=== PATIENT | male | born 1995 | race Caucasian/White ===

== ENCOUNTER 2019-04-12 05:33 | Emergency (ER) | payer BC ==
[2019-04-12 05:38] VITALS: BP 139/82; PULSE 74; RESP 18; TEMP 97.4
[2019-04-12] MEDS ORDERED: ACET/COD 300 MG/30 MG STARTER PACK 6 TAB BTL PO STA (06:05)
[2019-04-12] MEDS ORDERED: ONDANSETRON 4 MG ODT STARTER PACK 2 TAB BTL PO STA (06:05)
[2019-04-12] MEDS ORDERED: MORPHINE SULFATE 4 MG/ML SYRINGE IM STA (06:05)
[2019-04-12] MEDS ORDERED: KETOROLAC 30 MG/ML 1 ML VIAL IM STA (06:05)
[2019-04-12 06:21] LABS: Appearance,Urine Clear (Clear); Bacteria,Urine Rare /hpf; Bilirubin,Urine Negative (Negative); Blood,Urine Large (Negative); Color,Urine Light Red; Glucose,Urine (UA) Negative (Negative); Ketones,Urine Negative (Negative); Leukocyte Esterase,Urine Small (Negative); Mucus,Urine Rare /hpf; Nitrite,Urine Negative (Negative); Protein,Urine Trace (Negative); RBC,Urine >182 /hpf (0-5); Specific Gravity,Urine 1.018 (1.001-1.035); Urobilinogen,Urine <2.0 mg/dL (<2.0); WBC,Urine 9 /hpf (0-5)
--- NOTE | 2019-04-12 06:23 | ED ---
Abdominal Pain HPI - General Chief Complaint: Abdominal Pain Stated Complaint: left flank pain; blood in urine Time Seen by Provider: 04/12/19 05:46 Source: patient Mode of arrival: ambulatory Limitations: no limitations - History of Present Illness Initial Comments: Chuck is a 23 yo male with PMH of recurrent kidney stones or presents the ER today for evaluation of severe left-sided flank pain that woke him from sleep. Patient reports he woke up with this flank pain believe that he had a kidney stone, went to the bathroom had some urinary urgency and hesitancy and noted gross hematuria. That time he decided to come to the ER for further evaluation. Reports last kidney stone was approximately 2 years ago. He's never required lithotripsy. He denies any associated illness. This was sudden in onset less than 2 hours prior to arrival. - Related Data Previous Rx's Medication Instructions Recorded Tamsulosin [Flomax] 0.4 mg PO DAILY #7 cap 04/12/19 Allergies Allergy/AdvReac Type Severity Reaction Status Date / Time No Known Allergies Allergy Verified 04/12/19 05:38 Review of Systems ROS Statement: Those systems with pertinent positive or pertinent negative responses have been documented in the HPI. ROS Other: All systems not noted in ROS Statement are negative. Past Medical History Additional Past Medical History / Comment(s): kidney stones. History of Any Multi-Drug Resistant Organisms: None Reported Past Surgical History: Back Surgery Past Psychological History: No Psychological Hx Reported Smoking Status: Current every day smoker Past Alcohol Use History: None Reported Past Drug Use History: None Reported General Exam - General Exam Comments Initial Comments: Physical Exam GENERAL: Patient is well-developed and well-nourished. Patient is nontoxic and well-hydrated and is in no distress. HENT: Normocephalic, Atraumatic. EYES: PERRL, EOMI PULMONARY: Unlabored respirations. CARDIOVASCULAR: RRR Warm and well perfused extremities ABDOMEN: Non-distended Tenderness to percussion left flank SKIN: No rashes or bruising : Deferred NEUROLOGIC: Alert and oriented Normal speech Normal gait MUSCULOSKELETAL: Moving all extremities with no apparent injury PSYCHIATRIC: No SI/HI Limitations: no limitations Course Vital Signs 04/12/19 05:34 Temperature 97.4 F L Pulse Rate 74 Respiratory 18 Rate Blood Pressure 139/82 O2 Sat by Pulse 98 Oximetry Medical Decision Making - Medical Decision Making Patient was seen and evaluated history was obtained from patient history and physical exam concerning for left-sided nephrolithiasis with hematuria. This is an otherwise healthy man who's had no problems passing kidney stones in the past. Urinalysis does show hematuria no signs of infection. Patient was treated with IM morphine and Toradol for pain management, Zofran as needed for nausea will be discharged home with Tylenol 3, Zofran and Flomax. - Lab Data Lab Results 04/12/19 Range/Units 05:45 Urine Color Light Red Urine Appearance Clear (Clear) Urine pH 6.0 (5.0-8.0) Ur Specific [place] 1.018 (1.001-1.035) Urine Protein Trace H (Negative) Urine Glucose (UA) Negative (Negative) Urine Ketones Negative (Negative) Urine Blood Large H (Negative) Urine Nitrite Negative (Negative) Urine Bilirubin Negative (Negative) Urine Urobilinogen <2.0 (<2.0) mg/dL Ur Leukocyte Esterase Small H (Negative) Urine RBC >182 H (0-5) /hpf Urine WBC 9 H (0-5) /hpf Urine Bacteria Rare H (None) /hpf Urine Mucus Rare H (None) /hpf Disposition Clinical Impression: Flank pain Disposition: HOME SELF-CARE Condition: Stable Instructions (If sedation given, give patient instructions): Kidney Stones (ED) Prescriptions: Tamsulosin [Flomax] 0.4 mg PO DAILY #7 cap Is patient prescribed a controlled substance at d/c from ED?: No Referrals: None,Stated [Primary Care Provider] - 1-2 days Beck Valenzuela MD [STAFF PHYSICIAN] - 1-2 days
== END 2019-04-12 06:43 | disposition home or self-care (01) ==
LOC: EC 05:33
DX: R10.9 Unspecified abdominal pain (principal); R31.9 Hematuria, unspecified; R39.15 Urgency of urination; R39.11 Hesitancy of micturition; F17.200 Nicotine dependence, unspecified, uncomplicated; Z87.442 Personal history of urinary calculi
CPT/HCPCS: 81001; 99284; 96372 ×2; J2270; J1885; S0119

== ENCOUNTER 2020-08-16 05:24 | Emergency (ER) | payer BC, OTHER ==
[2020-08-16 05:29] VITALS: BP 126/80; PULSE 78; RESP 18; TEMP 97.6
[2020-08-16] MEDS ORDERED: LIDOCAINE 1% INJ 10MG/ML (20 ML MDV) SQ ONE (05:45)
[2020-08-16] MEDS ORDERED: SULFAMETHOX-TMP 800-160MG 1 EACH TAB PO STA (05:45)
--- NOTE | 2020-08-16 05:45 | ED ---
Skin/Abscess/FB HPI - General Chief complaint: Skin/Abscess/Foreign Body Stated complaint: Abscess Time Seen by Provider: 08/16/20 05:40 Source: patient Mode of arrival: ambulatory Limitations: no limitations - History of Present Illness MD complaint: abscess/boil Onset/Timin -: days(s) Tetanus Up to Date: no Location: buttocks Severity: moderate Quality: aching Consistency: constant Improves with: none Worsens with: palpation Context: none - Related Data Previous Rx's Medication Instructions Recorded Tamsulosin [Flomax] 0.4 mg PO DAILY #7 cap 04/12/19 Sulfamethox-Tmp 800-160Mg [Bactrim 1 each PO Q12HR #14 tab 08/16/20 Ds] Allergies Allergy/AdvReac Type Severity Reaction Status Date / Time No Known Allergies Allergy Verified 08/16/20 05:29 Review of Systems ROS Statement: Those systems with pertinent positive or pertinent negative responses have been documented in the HPI. ROS Other: All systems not noted in ROS Statement are negative. Constitutional: Denies: fever, chills Respiratory: Denies: cough, dyspnea Cardiovascular: Denies: chest pain, palpitations Gastrointestinal: Denies: abdominal pain, nausea, vomiting, diarrhea, constipation Musculoskeletal: Denies: back pain Skin: Reports: as per HPI, other (Abscess). Denies: rash Past Medical History Past Medical History: Asthma Additional Past Medical History / Comment(s): kidney stones. History of Any Multi-Drug Resistant Organisms: None Reported Past Surgical History: Back Surgery Past Psychological History: No Psychological Hx Reported Smoking Status: Current every day smoker Past Alcohol Use History: None Reported Past Drug Use History: None Reported General Exam Limitations: no limitations General appearance: alert, in no apparent distress Head exam: Present: atraumatic, normocephalic Eye exam: Present: normal appearance. Absent: scleral icterus, conjunctival injection GI/Abdominal exam: Present: soft. Absent: distended, tenderness, guarding Skin exam: Present: warm, dry, intact, normal color, other (There is an approximately 4 cm diameter abscess to the left side of the gluteal cleft). Absent: rash Course Vital Signs 08/16/20 05:25 Temperature 97.6 F Pulse Rate 78 Respiratory 18 Rate Blood Pressure 126/80 O2 Sat by Pulse 100 Oximetry Procedures - Incision & Drainage Consent Obtained: verbal consent Site: buttock Anesthetic Used: lidocaine 1% I&D Cleaning Method: Chloroprep Sterile Field Used?: Yes Scalpel Used: #11 Needle Aspiration Performed?: Yes Irrigation Performed?: Yes I&D Drainage Obtained: Pus, Blood Packing: Iodoform Patient Tolerated Procedure: well, no complications Disposition Clinical Impression: Abscess Disposition: HOME SELF-CARE Condition: Good Instructions (If sedation given, give patient instructions): Abscess Incision and Drainage (ED) Prescriptions: Sulfamethox-Tmp 800-160Mg [Bactrim Ds] 1 each PO Q12HR #14 tab Is patient prescribed a controlled substance at d/c from ED?: No Referrals: None,Stated [Primary Care Provider] - 1-2 days
== END 2020-08-16 06:43 | disposition home or self-care (01) ==
LOC: EC 05:24
DX: L02.31 Cutaneous abscess of buttock (principal); J45.909 Unspecified asthma, uncomplicated; F17.200 Nicotine dependence, unspecified, uncomplicated; Z87.442 Personal history of urinary calculi
CPT/HCPCS: 99282; 10160; J2001

== ENCOUNTER 2020-09-21 05:32 | Emergency (ER) | payer BC ==
[2020-09-21 05:37] VITALS: RESP 16; TEMP 97.7
[2020-09-21] MEDS ORDERED: IPRATROPIUM-ALBUTEROL 3 ML NEB INHALATION STA (05:53)
--- NOTE | 2020-09-21 05:53 | ED ---
SOB HPI - General Chief Complaint: Shortness of Breath Stated Complaint: SOFIE Time Seen by Provider: 09/21/20 05:34 Source: patient, RN notes reviewed, old records reviewed Mode of arrival: ambulatory Limitations: no limitations - History of Present Illness Initial Comments: This is a 25-year-old male DF for evaluation with history of asthma. Patient pr esents having shortness of breath with increased cough and congestion. Patient did have a cigarettes night states after smoking he is increasingly short of breath. No current chest pain. No fevers. MD Complaint: shortness of breath, cough, "asthma attack", anxiety -: hour(s) Severity: moderate Severity scale (1-10): 6 Quality: dull Consistency: constant Improves With: nothing Known History Of: asthma Context: other (Patient did smoke tonight) Associated Symptoms: cough - Related Data Previous Rx's Medication Instructions Recorded Tamsulosin [Flomax] 0.4 mg PO DAILY #7 cap 04/12/19 Sulfamethox-Tmp 800-160Mg [Bactrim 1 each PO Q12HR #14 tab 08/16/20 Ds] Azithromycin [Zithromax Z-pack (6 0 mg PO DIRECTED #1 pack 09/21/20 tabs)] predniSONE 50 mg PO DAILY #5 tab 09/21/20 Allergies Allergy/AdvReac Type Severity Reaction Status Date / Time No Known Allergies Allergy Verified 09/21/20 05:34 Review of Systems ROS Statement: Those systems with pertinent positive or pertinent negative responses have been documented in the HPI. ROS Other: All systems not noted in ROS Statement are negative. Past Medical History Past Medical History: Asthma Additional Past Medical History / Comment(s): kidney stones. History of Any Multi-Drug Resistant Organisms: None Reported Past Surgical History: Back Surgery Past Psychological History: No Psychological Hx Reported Smoking Status: Current every day smoker Past Alcohol Use History: Occasional Past Drug Use History: None Reported General Exam Limitations: no limitations General appearance: alert, in no apparent distress, anxious Head exam: Present: atraumatic, normocephalic, normal inspection Eye exam: Present: normal appearance, PERRL, EOMI. Absent: scleral icterus, conjunctival injection, periorbital swelling ENT exam: Present: normal exam, mucous membranes moist Neck exam: Present: normal inspection. Absent: tenderness, meningismus, lymphadenopathy Respiratory exam: Present: wheezes, decreased breath sounds, prolonged expiratory. Absent: respiratory distress, rales, rhonchi, stridor Cardiovascular Exam: Present: regular rate, normal rhythm, normal heart sounds. Absent: systolic murmur, diastolic murmur, rubs, gallop, clicks GI/Abdominal exam: Present: soft, normal bowel sounds. Absent: distended, tenderness, guarding, rebound, rigid Extremities exam: Present: normal inspection, full ROM, normal capillary refill. Absent: tenderness, pedal edema, joint swelling, calf tenderness Back exam: Present: normal inspection Neurological exam: Present: alert, oriented X3, CN II-XII intact Psychiatric exam: Present: normal affect, normal mood Skin exam: Present: warm, dry, intact, normal color. Absent: rash Course Vital Signs 09/21/20 09/21/20 09/21/20 05:34 06:26 06:53 Temperature 97.7 F Pulse Rate 73 72 78 Respiratory 16 16 Rate Blood Pressure 131/80 117/69 O2 Sat by Pulse 100 100 Oximetry - Reevaluation(s) Reevaluation #1: Medical record is reviewed Patient symptoms significantly improved here in the ER Patient informed results questions answered Medical Decision Making - Medical Decision Making 25 male to the ER for evaluation patient has history of asthma presenting with severe asthma exacerbation other symptoms are resolved on the ER patient feels good for discharge home Disposition Clinical Impression: Asthma with acute exacerbation Disposition: HOME SELF-CARE Condition: Good Instructions (If sedation given, give patient instructions): Asthma (ED) Prescriptions: predniSONE 50 mg PO DAILY #5 tab Azithromycin [Zithromax Z-pack (6 tabs)] 0 mg PO DIRECTED #1 pack Is patient prescribed a controlled substance at d/c from ED?: No Referrals: Nonstaff,Physician [Primary Care Provider] - 1-2 days
[2020-09-21] MEDS ORDERED: predniSONE 20 MG TAB PO STA (05:54)
[2020-09-21 06:53] VITALS: BP 117/69; PULSE 78
== END 2020-09-21 06:53 | disposition home or self-care (01) ==
LOC: EC 05:32
DX: J45.901 Unspecified asthma with (acute) exacerbation (principal); F17.200 Nicotine dependence, unspecified, uncomplicated; Z87.442 Personal history of urinary calculi
CPT/HCPCS: 94640; 99284; J7512

== ENCOUNTER 2021-01-22 12:13 | Emergency (ER) | payer BC, OTHER ==
[2021-01-22 13:56] VITALS: BP 141/89; PULSE 80; RESP 18; TEMP 98.7
--- NOTE | 2021-01-22 13:58 | ED ---
Skin/Abscess/FB HPI - General Chief complaint: Skin/Abscess/Foreign Body Stated complaint: skin rash Time Seen by Provider: 01/22/21 13:57 Source: patient, RN notes reviewed Mode of arrival: ambulatory Limitations: no limitations - History of Present Illness Initial comments: the 25-year-old male presents emergency Department chief complaint of a rash. Patient states rash started last night. Patient states that she had nature. Patient states it's spread to both arms. Patient denies being on the words or touching anything new. Patient states that he did break off bleed that was in the fence line. Patient offers no other complaints. No difficulty breathing. - Related Data Previous Rx's Medication Instructions Recorded Tamsulosin [Flomax] 0.4 mg PO DAILY #7 cap 04/12/19 Sulfamethox-Tmp 800-160Mg [Bactrim 1 each PO Q12HR #14 tab 08/16/20 Ds] Azithromycin [Zithromax Z-pack (6 0 mg PO DIRECTED #1 pack 09/21/20 tabs)] predniSONE 50 mg PO DAILY #5 tab 09/21/20 Triamcinolone 0.1% Cream [Kenalog 1 applicatio TOPICAL BID #30 gram 01/22/21 0.1% Cream] diphenhydrAMINE & Zinc Cream 1 applic TOPICAL TID #28 gm 01/22/21 [Benadryl Cream] predniSONE 50 mg PO DAILY #5 tab 01/22/21 Allergies Allergy/AdvReac Type Severity Reaction Status Date / Time No Known Allergies Allergy Verified 01/22/21 13:56 Review of Systems ROS Statement: Those systems with pertinent positive or pertinent negative responses have been documented in the HPI. ROS Other: All systems not noted in ROS Statement are negative. Past Medical History Past Medical History: Asthma Additional Past Medical History / Comment(s): kidney stones. History of Any Multi-Drug Resistant Organisms: None Reported Past Surgical History: Back Surgery Past Psychological History: No Psychological Hx Reported Smoking Status: Current every day smoker Past Alcohol Use History: Occasional Past Drug Use History: None Reported General Exam Limitations: no limitations General appearance: alert, in no apparent distress Head exam: Present: atraumatic, normocephalic, normal inspection Eye exam: Present: normal appearance, PERRL, EOMI. Absent: scleral icterus, conjunctival injection, periorbital swelling ENT exam: Present: normal exam, normal oropharynx, mucous membranes moist Neck exam: Present: normal inspection, full ROM. Absent: tenderness, meningismus, lymphadenopathy Respiratory exam: Present: normal lung sounds bilaterally. Absent: respiratory distress, wheezes, rales, rhonchi, stridor Cardiovascular Exam: Present: regular rate, normal rhythm, normal heart sounds. Absent: systolic murmur, diastolic murmur, rubs, gallop, clicks Skin exam: Present: warm, dry, intact, normal color, rash (has erythematous papular rash and macular in nature to the extremities upper) Course Vital Signs 01/22/21 13:54 Temperature 98.7 F Pulse Rate 80 Respiratory 18 Rate Blood Pressure 141/89 O2 Sat by Pulse 100 Oximetry Medical Decision Making - Medical Decision Making patient has contact dermatitis started and topical and oral steroids. Disposition Clinical Impression: Contact dermatitis Disposition: HOME SELF-CARE Condition: Stable Instructions (If sedation given, give patient instructions): Contact Dermatitis (ED) Additional Instructions: Please return to the Emergency Department if symptoms worsen or any other concerns. Prescriptions: diphenhydrAMINE & Zinc Cream [Benadryl Cream] 1 applic TOPICAL TID #28 gm Triamcinolone 0.1% Cream [Kenalog 0.1% Cream] 1 applicatio TOPICAL BID #30 gram predniSONE 50 mg PO DAILY #5 tab Is patient prescribed a controlled substance at d/c from ED?: No Referrals: Nonstaff,Physician [Primary Care Provider] - 1-2 days Time of Disposition: 13:58
== END 2021-01-22 14:10 | disposition home or self-care (01) ==
LOC: EC 12:13
DX: L25.9 Unspecified contact dermatitis, unspecified cause (principal); J45.909 Unspecified asthma, uncomplicated; F17.200 Nicotine dependence, unspecified, uncomplicated
CPT/HCPCS: 99282

== ENCOUNTER → 2021-07-05 | Outpatient (CLI) | payer OTHER ==
--- NOTE | 2021-07-05 12:11 | XR ---
EXAMINATION TYPE: XR chest 2V DATE OF EXAM: 07/05/2021 COMPARISON: None available HISTORY: 25-year-old male, history of asthma, assess lungs TECHNIQUE: Frontal and lateral views of the chest are obtained. FINDINGS: Unremarkable lungs. No pleural effusion or pneumothorax. No cardiomegaly. Unremarkable bony thoracic cage. IMPRESSION: No significant abnormality.
== END | disposition home or self-care (01) ==
LOC: RADXRMAIN 11:39
PROVIDERS: ATTEND Emergency Medicine
DX: R05.9 Cough, unspecified (principal); Z87.09 Personal history of other diseases of the respiratory system
CPT/HCPCS: 71046

== ENCOUNTER 2021-08-16 21:57 | Emergency (ER) | payer OTHER ==
[2021-08-16 22:38] VITALS: BP 131/87; TEMP 98
[2021-08-17] MEDS ORDERED: predniSONE 50 MG TAB PO STA (00:01)
[2021-08-17] MEDS ORDERED: IPRATROPIUM-ALBUTEROL 3 ML NEB INHALATION STA (00:02)
--- NOTE | 2021-08-17 00:06 | ED ---
SOB HPI - General Chief Complaint: Shortness of Breath Stated Complaint: SOB Time Seen by Provider: 08/16/21 23:21 Source: patient, RN notes reviewed Mode of arrival: wheelchair - History of Present Illness Initial Comments: This is a pleasant 25-year-old male who presents emergency department complaining of a asthma attack. Patient states it seemed to be worse when he is in the waiting room but has settled down now. Patient also states he is out of his inhaler. Patient states that his triggers are some things at work that he is ALLERGIC to. Patient denies any fever or chills. Patient also has other environmental triggers. Patient denying any other symptomology [place]. No chest pain or shortness of breath. No body aches. No runny nose. No earache. No sore throat. No headache, no fever or chills, no changes in vision or hearing, no sore throat or difficulty with speech, no neck pain, no chest pain, no abdominal pain, no nausea or vomiting, no changes in urination or bowel movements, no numbness or tingling, no extremity pain, no skin rashes or lesions. MD Complaint: shortness of breath - Related Data Previous Rx's Medication Instructions Recorded Tamsulosin [Flomax] 0.4 mg PO DAILY #7 cap 04/12/19 Sulfamethox-Tmp 800-160Mg [Bactrim 1 each PO Q12HR #14 tab 08/16/20 Ds] Azithromycin [Zithromax Z-pack (6 0 mg PO DIRECTED #1 pack 09/21/20 tabs)] predniSONE 50 mg PO DAILY #5 tab 09/21/20 Triamcinolone 0.1% Cream [Kenalog 1 applicatio TOPICAL BID #30 gram 01/22/21 0.1% Cream] diphenhydrAMINE & Zinc Cream 1 applic TOPICAL TID #28 gm 01/22/21 [Benadryl Cream] predniSONE 50 mg PO DAILY #5 tab 01/22/21 Albuterol Sulfate [Albuterol 2 puff PO Q6H #8.5 gm 08/17/21 Sulfate Hfa] predniSONE 50 mg PO DAILY #3 tab 08/17/21 Allergies Allergy/AdvReac Type Severity Reaction Status Date / Time No Known Allergies Allergy Verified 08/16/21 22:38 Review of Systems ROS Statement: Those systems with pertinent positive or pertinent negative responses have been documented in the HPI. ROS Other: All systems not noted in ROS Statement are negative. Past Medical History Past Medical History: Asthma Additional Past Medical History / Comment(s): kidney stones. History of Any Multi-Drug Resistant Organisms: None Reported Past Surgical History: Back Surgery Past Psychological History: No Psychological Hx Reported Smoking Status: Current every day smoker Past Alcohol Use History: Occasional Past Drug Use History: None Reported General Exam General appearance: alert, in no apparent distress Head exam: Present: atraumatic, normocephalic, normal inspection Eye exam: Present: normal appearance, PERRL, EOMI. Absent: scleral icterus, conjunctival injection, periorbital swelling ENT exam: Present: normal exam, normal oropharynx, mucous membranes moist, TM's normal bilaterally, normal external ear exam. Absent: mucous membranes dry Neck exam: Present: normal inspection, full ROM. Absent: tenderness, meningismus, lymphadenopathy Respiratory exam: Present: wheezes (Scant expiratory wheezes heard.). Absent: respiratory distress, rales, rhonchi, stridor, chest wall tenderness, accessory muscle use, decreased breath sounds, prolonged expiratory Cardiovascular Exam: Present: regular rate, normal rhythm, normal heart sounds. Absent: systolic murmur, diastolic murmur, rubs, gallop, clicks GI/Abdominal exam: Present: soft, normal bowel sounds. Absent: distended, tenderness, guarding, rebound, rigid Extremities exam: Present: normal inspection, full ROM, normal capillary refill. Absent: tenderness, pedal edema, joint swelling, calf tenderness Back exam: Present: normal inspection Neurological exam: Present: alert, oriented X3, CN II-XII intact Psychiatric exam: Present: normal affect, normal mood Skin exam: Present: warm, dry, intact, normal color. Absent: rash Course Vital Signs 08/16/21 22:34 Temperature 98.0 F Pulse Rate 79 Respiratory 18 Rate Blood Pressure 131/87 O2 Sat by Pulse 97 Oximetry Medical Decision Making - Medical Decision Making Patient presents with symptomology consistent with a mild asthma attack. We will treat with bronchodilators, anticholinergics here, and prednisone for 3 days. Patient concurs with this treatment plan. Albuterol prescription written. Patient also follow-up with his regular physician. All questions answered. Patient presentation not consistent with an infectious etiology. I see no indication for imaging at this time. Patient in no distress at discharge Patient was told to return to the ER for any signs or symptoms worsen. Told to return immediately if any other problems arise. All questions answered. Treatment plan discussed. Patient in agreement Every effort has been made to ensure accuracy of this dictation. However, due to the limitations of electronic medical records and dictation devices, errors in charting still occur. [employer] Supervisor Dr. Kendall Disposition Clinical Impression: Asthma exacerbation Narrative: Mild asthma exacerbation Disposition: HOME SELF-CARE Condition: Good Instructions (If sedation given, give patient instructions): Asthma (ED) Additional Instructions: Follow-up with your regular physician as directed. Return to the ER immediately if any symptoms worsen, new symptoms arise, or any other problems develop. Is patient prescribed a controlled substance at d/c from ED?: No Referrals: Abilio Odell [STAFF PHYSICIAN] - 1-2 days Time of Disposition: 00:06
[2021-08-17 01:24] VITALS: PULSE 87; RESP 2
== END 2021-08-17 01:23 | disposition home or self-care (01) ==
LOC: EC 21:57
DX: J45.901 Unspecified asthma with (acute) exacerbation (principal); F17.200 Nicotine dependence, unspecified, uncomplicated
CPT/HCPCS: 94640; 99284; J7512

== ENCOUNTER 2022-01-29 05:46 | Emergency (ER) | payer BC ==
[2022-01-29 05:50] VITALS: RESP 16; TEMP 98.2
[2022-01-29] MEDS ORDERED: KETOROLAC 15 MG/ML 1 ML VIAL IM STA (06:18)
[2022-01-29] MEDS ORDERED: HYDROcodone/APAP 5-325MG 1 EACH TAB PO STA (06:18)
--- NOTE | 2022-01-29 06:26 | ED ---
Upper Extremity HPI - General Chief Complaint: Extremity Injury, Upper Stated Complaint: Right hand injury Time Seen by Provider: 01/29/22 05:58 Source: patient, RN notes reviewed Mode of arrival: ambulatory Limitations: no limitations - History of Present Illness Initial Comments: This is a 26-year-old male who presents to the emergency department for a right hand injury. States that he had a night terror, and subsequently punched his nightstand. He has since had a lot of pain and swelling to the right hand. He is having difficulty opening and closing his hand due to the pain. Denies any fevers, chills, sore throat, cough, dyspnea, chest pain, palpitations, abdominal pain, nausea, vomiting, diarrhea, back pain, or headaches. MD Complaint: Injury to:: right, hand Context: direct blow - Related Data Previous Rx's Medication Instructions Recorded Tamsulosin [Flomax] 0.4 mg PO DAILY #7 cap 04/12/19 Sulfamethox-Tmp 800-160Mg [Bactrim 1 each PO Q12HR #14 tab 08/16/20 Ds] Azithromycin [Zithromax Z-pack (6 0 mg PO DIRECTED #1 pack 09/21/20 tabs)] predniSONE 50 mg PO DAILY #5 tab 09/21/20 Triamcinolone 0.1% Cream [Kenalog 1 applicatio TOPICAL BID #30 gram 01/22/21 0.1% Cream] diphenhydrAMINE & Zinc Cream 1 applic TOPICAL TID #28 gm 01/22/21 [Benadryl Cream] predniSONE 50 mg PO DAILY #5 tab 01/22/21 Albuterol Sulfate [Albuterol 2 puff PO Q6H #8.5 gm 08/17/21 Sulfate Hfa] predniSONE 50 mg PO DAILY #3 tab 08/17/21 Allergies Allergy/AdvReac Type Severity Reaction Status Date / Time No Known Allergies Allergy Verified 01/29/22 05:48 Review of Systems ROS Statement: Those systems with pertinent positive or pertinent negative responses have been documented in the HPI. ROS Other: All systems not noted in ROS Statement are negative. Past Medical History Past Medical History: Asthma Additional Past Medical History / Comment(s): kidney stones. History of Any Multi-Drug Resistant Organisms: None Reported Past Surgical History: Back Surgery Past Psychological History: No Psychological Hx Reported Smoking Status: Current every day smoker Past Alcohol Use History: Occasional Past Drug Use History: None Reported General Exam Limitations: no limitations General appearance: alert, in no apparent distress Head exam: Present: atraumatic, normocephalic, normal inspection Respiratory exam: Present: normal lung sounds bilaterally. Absent: respiratory distress, wheezes, rales, rhonchi, stridor Cardiovascular Exam: Present: regular rate, normal rhythm, normal heart sounds. Absent: systolic murmur, diastolic murmur, rubs, gallop, clicks Extremities exam: Present: other (Erythema, swelling, and tenderness over the dorsal aspect of the right hand.) Neurological exam: Present: alert, oriented X3, CN II-XII intact Psychiatric exam: Present: normal affect, normal mood Skin exam: Present: warm, dry, intact, normal color. Absent: rash Course Vital Signs 01/29/22 01/29/22 05:48 06:39 Temperature 98.2 F Pulse Rate 80 68 Respiratory 16 16 Rate Blood Pressure 155/84 145/89 O2 Sat by Pulse 99 98 Oximetry Medical Decision Making - Medical Decision Making This is a 26-year-old male who presents to the emergency department for a right hand injury. X-ray obtained revealing no acute osseous abnormality. Patient was given starter packs for ibuprofen and Tylenol #3. His hand was also wrapped with an Bharat bandage. Instructed him to alternate with ibuprofen and Tylenol for pain relief and to apply ice for 10-15 minutes every 2-3 hours. He can use the Bharat bandages as needed for additional support. Return precautions reviewed in depth, the patient is instructed to return to the emergency department with any new, worsening, or concerning symptoms. Patient verbalized understanding. This case was discussed in detail with the attending ED physician. Presentation, findings, and treatment plan discussed in detail as well. - Radiology Data Radiology results: report reviewed, image reviewed Disposition Clinical Impression: Contusion of hand, right Disposition: HOME SELF-CARE Instructions (If sedation given, give patient instructions): Crush Injury (ED) Additional Instructions: Return to the emergency department with any new, worsening, or concerning symptoms. Alternate with ibuprofen and Tylenol for pain relief. Apply ice for 10-15 minutes every 2-3 hours to help with swelling and inflammation. You can use an Bharat bandage as needed for additional support. Follow up with your primary care provider in 1-2 days. Is patient prescribed a controlled substance at d/c from ED?: No Referrals: None,Stated [Primary Care Provider] - 1-2 days
[2022-01-29 06:41] VITALS: BP 145/89; PULSE 68
[2022-01-29] MEDS ORDERED: IBUPROFEN 600 MG STARTER PACK 4 TAB BTL PO STA (06:53)
[2022-01-29] MEDS ORDERED: ACET/COD 300 MG/30 MG STARTER PACK 6 TAB BTL PO STA (06:53)
--- NOTE | 2022-01-29 06:54 | XR ---
EXAMINATION TYPE: XR hand complete RT DATE OF EXAM: 01/29/2022 6:10 AM INDICATION: Patient age:Male; 26 years old; Reason for study: RIGHT HAND SWELLING AND PAIN; [facility]. COMPARISON: None TECHNIQUE: Frontal, lateral and oblique views of the right hand were obtained. FINDINGS: Normal alignment of the visualized joints. No acute osseous pathology is identified. No e vidence of soft tissue swelling. IMPRESSION: No acute osseous pathology.
== END 2022-01-29 07:13 | disposition home or self-care (01) ==
LOC: EC 05:46
DX: S60.221A Contusion of right hand, initial encounter (principal); J45.909 Unspecified asthma, uncomplicated; F17.200 Nicotine dependence, unspecified, uncomplicated; Z79.51 Long term (current) use of inhaled steroids; W22.8XXA Striking against or struck by other objects, initial encounter
CPT/HCPCS: 99283 ×2; 96372 ×2; 73130; J1885

== ENCOUNTER 2023-04-10 14:19 | Emergency (ER) | payer BC ==
--- NOTE | 2023-04-10 15:24 | ED ---
General Adult HPI - General Source: patient Mode of arrival: ambulatory Limitations: no limitations <Chris Larkin - Last Filed: 04/10/23 15:25> - General Source: patient, family, RN notes reviewed Mode of arrival: ambulatory Limitations: no limitations <Lyndsay Sharma - Last Filed: 04/10/23 16:46> - General Chief complaint: Upper Respiratory Infection Stated complaint: Flu Symptoms Time Seen by Provider: 04/10/23 15:24 - History of Present Illness Initial comments: 27-year-old male presenting to the ED with a chief complaint of fever. Patient states woke up this morning with myalgias, headache, and fever. Also notes some sore throat (Chris Larkin) Patient is a 27-year-old male presented ER with chief complaint of fevers. Patient states he woke up this morning with body aches, fever, headache. Patient also reports congestion and mild sore throat. Patient denies any difficulty breathing or wheezing. Patient is otherwise healthy. Patient has been taking [id number] DayQuil for symptoms. Last dose was at 5:30 this morning. Patient denies any chest pain, shortness of breath, abdominal pain, consultation/diarrhea, urinary problems, peripheral edema. (Lyndsay Sharma) - Related Data Previous Rx's Medication Instructions Recorded Tamsulosin [Flomax] 0.4 mg PO DAILY #7 cap 04/12/19 Sulfamethox-Tmp 800-160Mg [Bactrim 1 each PO Q12HR #14 tab 08/16/20 Ds] Azithromycin [Zithromax Z-pack (6 0 mg PO DIRECTED #1 pack 09/21/20 tabs)] predniSONE 50 mg PO DAILY #5 tab 09/21/20 Triamcinolone 0.1% Cream [Kenalog 1 applicatio TOPICAL BID #30 gram 01/22/21 0.1% Cream] diphenhydrAMINE & Zinc Cream 1 applic TOPICAL TID #28 gm 01/22/21 [Benadryl Cream] predniSONE 50 mg PO DAILY #5 tab 01/22/21 Albuterol Sulfate [Albuterol 2 puff PO Q6H #8.5 gm 08/17/21 Sulfate Hfa] predniSONE 50 mg PO DAILY #3 tab 08/17/21 Allergies Allergy/AdvReac Type Severity Reaction Status Date / Time No Known Allergies Allergy Verified 04/10/23 15:11 Review of Systems ROS Other: All systems not noted in ROS Statement are negative. <Chris Larkin - Last Filed: 04/10/23 15:25> ROS Other: All systems not noted in ROS Statement are negative. <Lyndsay Sharma - Last Filed: 04/10/23 16:46> ROS Statement: Those systems with pertinent positive or pertinent negative responses have been documented in the HPI. Past Medical History Past Medical History: Asthma Additional Past Medical History / Comment(s): kidney stones. History of Any Multi-Drug Resistant Organisms: None Reported Past Surgical History: Back Surgery Past Psychological History: No Psychological Hx Reported Smoking Status: Current every day smoker Past Alcohol Use History: Occasional Past Drug Use History: None Reported <Chris Larkin - Last Filed: 04/10/23 15:25> General Exam Limitations: no limitations <Chris Larkin - Last Filed: 04/10/23 15:25> General appearance: alert, in no apparent distress Head exam: Present: atraumatic, normocephalic, normal inspection ENT exam: Present: normal exam, normal oropharynx, mucous membranes moist, TM's normal bilaterally Neck exam: Present: normal inspection. Absent: tenderness, meningismus, lymphadenopathy Respiratory exam: Present: normal lung sounds bilaterally. Absent: respiratory distress, wheezes, rales, rhonchi, stridor Cardiovascular Exam: Present: regular rate, normal rhythm, normal heart sounds. Absent: systolic murmur, diastolic murmur, rubs, gallop, clicks Neurological exam: Present: alert, oriented X3, CN II-XII intact Psychiatric exam: Present: normal affect, normal mood Skin exam: Present: warm, dry, intact, normal color. Absent: rash <Lyndsay Sharma - Last Filed: 04/10/23 16:46> - General Exam Comments Initial Comments: Visual Physical Exam Vital signs reviewed General: Well-appearing, nontoxic, no acute distress. Head: Normocephalic, atraumatic Eyes: PERRLA, EOMI ENT: Airway patent Chest: Nonlabored breathing Skin: No visual rash, normal skin tone Neuro: Alert and oriented 3 Musculoskeletal: No gross abnormalities (Chris Larkin) Course Vital Signs 04/10/23 15:08 Temperature 100 F H Pulse Rate 112 H Respiratory 18 Rate Blood Pressure 133/82 O2 Sat by Pulse 99 Oximetry Medical Decision Making <Karen Larkinshua - Last Filed: 04/10/23 15:25> <Lyndsay Sharma - Last Filed: 04/10/23 16:46> - Medical Decision Making Quicknote portion performed. Signed Chris Larkin PA-C (Chris Larkin) Was pt. sent in by a medical professional or institution (, PA, VULNERABILITY ASSESSMENT ANALYST, urgent care, hospital, or intermediate...) When possible be specific @ -No Did you speak to anyone other than the patient for history (EMS, parent, family, police, friend...)? What history was obtained from this source @ -Family Did you review nursing and triage notes (agree or disagree)? Why? @ -I reviewed and agree with nursing and triage notes Were old charts reviewed (outside hosp., previous admission, EMS record, old EKG, old radiological studies, urgent care reports/EKG's, intermediate records)? Report findings @ -No old charts were reviewed Differential Diagnosis (chest pain, altered mental status, abdominal pain women, abdominal pain men, vaginal bleeding, weakness, fever, dyspnea, syncope, headache, dizziness, GI bleed, back pain, seizure, CVA, palpatations, mental health, musculoskeletal)? @ -Differential Fever: Pneumonia, viral URI, endocarditis, myocarditis, pericarditis, otitis, sinusitis, peritonsillar Abscess, retropharyngeal Abscess, epiglottitis, peritonitis, appendicitis, Moa cystitis, diverticulitis, hepatitis, colitis, UTI, PID, TOA, pyelonephritis, prostatitis, epididymitis, meningitis, encephalitis, pulmonary embolism, CVA, thyroid storm, pancreatitis, adrenal crisis, cavernous sinus thrombosis, this is not meant to be an all- inclusive list. EKG interpreted by me (3pts min.). @ -None X-rays interpreted by me (1pt min.). @ -None done CT interpreted by me (1pt min.). @ -None done U/S interpreted by me (1pt. min.). @ -None done What testing was considered but not performed or refused? (CT, X-rays, U/S, labs)? Why? @ -None What meds were considered but not given or refused? Why? @ -None Did you discuss the management of the patient with other professionals (professionals i.e. , PA, VULNERABILITY ASSESSMENT ANALYST, lab, RT, psych nurse, outreach and education social worker, garment alteration examiner, teacher, recreation officer, caser)? Give summary @ -No Was smoking cessation discussed for >3mins.? @ -I discussed smoking cessation for greater than 3 minutes. The risk of smoking were discussed with the patient including but not limited to risks of cancer, stroke, coronary artery disease and COPD. Also discussed with patient were multiple methods of quitting smoking. Lastly we discussed the financial cost of smoking. Was critical care preformed (if so, how long)? @ -No Were there social determinants of health that impacted care today? How? (Homelessness, low income, unemployed, alcoholism, drug addiction, transportation, low edu. Level, literacy, decrease access to med. care, assisted, rehab)? @ -No Was there de-escalation of care discussed even if they declined (Discuss DNR or withdrawal of care, Hospice)? DNR status @ -No What co-morbidities impacted this encounter? (DM, HTN, Smoking, COPD, CAD, Cancer, CVA, ARF, Chemo, Hep., AIDS, mental health diagnosis, sleep apnea, morbid obesity)? @ -None Was patient admitted / discharged? Hospital course, mention meds given and route, prescriptions, significant lab abnormalities, going to OR and other pertinent info. @ -Discharge. Patient is a 27-year-old male presented ER with chief complaint of fever and malaise. Upon examination, patient had a temperature of 100. Physical exam was significant for bilateral lung sounds clear to auscultation. Exam is otherwise unremarkable. Patient received by mouth Tylenol for fever control in the ER. Viral swabs obtained the ER were positive for COVID. I discussed with patient lab findings. I advised him to use [id number] Tylenol and Motrin for fever and symptom control. I also encouraged increase hydration. I discussed smoking cessation for greater than 3 minutes. The risk of smoking were discussed with the patient including but not limited to risks of cancer, stroke, coronary artery disease and COPD. Also discussed with patient were multiple methods of quitting smoking. Lastly we discussed the financial cost of smoking. Patient will be discharged in stable condition with follow-up to PCP. Return parameters were discussed. Patient expressed understanding and agreement with care plan. Undiagnosed new problem with uncertain prognosis? @ -No Drug Therapy requiring intensive monitoring for toxicity (Heparin, Nitro, Insulin, Cardizem)? @ -No Were any procedures done? @ -No Diagnosis/symptom? @ -COVID-19 Acute, or Chronic, or Acute on Chronic? @ -Acute Uncomplicated (without systemic symptoms) or Complicated (systemic symptoms)? @ -Uncomplicated Side effects of treatment? @ -No Exacerbation, Progression, or Severe Exacerbation? @ -No Poses a threat to life or bodily function? How? (Chest pain, [place], [place], pneumonia, PE, COPD, DKA, ARF, appy, cholecystitis, CVA, Diverticulitis, Homicidal, Suicidal, threat to staff... and all critical care pts) @ -No (Lyndsay Sharma) - Lab Data Lab Results 04/10/23 Range/Units 15:12 Influenza Type A (PCR) Not Detected (Not Detectd) Influenza Type B (PCR) Not Detected (Not Detectd) RSV (PCR) Not Detected (Not Detectd) SARS-CoV-2 (PCR) Detected A (Not Detectd) Disposition <Chris Larkin - Last Filed: 04/10/23 15:25> Is patient prescribed a controlled substance at d/c from ED?: No Time of Disposition: 16:41 <Lyndsay Sharma - Last Filed: 04/10/23 16:46> Clinical Impression: COVID-19 Disposition: HOME SELF-CARE Condition: Stable Additional Instructions: Please use [id number] Tylenol and Motrin for fever and symptom control. Please return to the Emergency Department if symptoms worsen or any other concerns. Referrals: None,Stated [Primary Care Provider] - 1-2 days
[2023-04-10 15:33] VITALS: BP 133/82; PULSE 112; RESP 18; TEMP 100
[2023-04-10] MEDS ORDERED: ACETAMINOPHEN TAB 325 MG TAB PO STA (16:12)
== END 2023-04-10 16:47 | disposition home or self-care (01) ==
LOC: EC 14:19
DX: U07.1 COVID-19 (principal); J45.909 Unspecified asthma, uncomplicated; F17.200 Nicotine dependence, unspecified, uncomplicated
CPT/HCPCS: 87636; 99283; 99406

== ENCOUNTER 2024-01-16 17:58 | Inpatient (IN) | payer BC ==
--- NOTE | 2024-01-16 18:20 | ED ---
Chest Pain HPI - General Chief Complaint: Chest Pain Stated Complaint: chest pain Time Seen by Provider: 01/16/24 18:04 Source: patient, RN notes reviewed Mode of arrival: EMS Limitations: no limitations - History of Present Illness Initial Comments: This is a 28-year-old male who presents to the emergency department for chest pain. Patient states that it started when he woke up this morning. Pain is primarily in the center of his chest. He has some associated shortness of breath. States that he has been coughing for the last few days as well. He has been around his aunt who is sick with a cough. Denies any fevers or chills. Denies any history of chest pain in the past. He has no personal or family history of cardiac issues. [facility] and was sent to the emergency department for further evaluation. States that the chest pain has since started to subside and is less intense than it was earlier this morning. MD Complaint: chest pain - Related Data Home Medications Medication Instructions Recorded Confirmed Albuterol Nebulized [Ventolin 2.5 mg INHALATION RT-TID PRN 01/16/24 01/16/24 Nebulized] Albuterol Sulfate [Albuterol 2 puff INHALATION RT-Q6H PRN 01/16/24 01/16/24 Sulfate Hfa] Fexofenadine HCl [Maura Allergy] 180 mg PO HS 01/16/24 01/16/24 Fluticasone Nasal [place] [Flonase 1 spray EA NOSTRIL HS 01/16/24 01/16/24 Nasal [place]] Montelukast [Singulair] 10 mg PO HS 01/16/24 01/16/24 Omeprazole 20 mg PO HS 01/16/24 01/16/24 Allergies Allergy/AdvReac Type Severity Reaction Status Date / Time No Known Allergies Allergy Verified 04/10/23 15:11 Review of Systems ROS Statement: Those systems with pertinent positive or pertinent negative responses have been documented in the HPI. ROS Other: All systems not noted in ROS Statement are negative. Past Medical History Past Medical History: Asthma Additional Past Medical History / Comment(s): kidney stones. History of Any Multi-Drug Resistant Organisms: None Reported Past Surgical History: Back Surgery Past Psychological History: No Psychological Hx Reported Smoking Status: Current every day smoker Past Alcohol Use History: Occasional Past Drug Use History: None Reported General Exam Limitations: no limitations General appearance: alert, in no apparent distress Head exam: Present: atraumatic, normocephalic, normal inspection Respiratory exam: Present: normal lung sounds bilaterally. Absent: respiratory distress, wheezes, rales, rhonchi, stridor Cardiovascular Exam: Present: regular rate, normal rhythm, normal heart sounds. Absent: systolic murmur, diastolic murmur, rubs, gallop, clicks Neurological exam: Present: alert, oriented X3, CN II-XII intact Psychiatric exam: Present: normal affect, normal mood Skin exam: Present: warm, dry, intact, normal color. Absent: rash Course Vital Signs 01/16/24 01/16/24 18:26 21:00 Temperature 98.6 F Pulse Rate 100 90 Respiratory 18 18 Rate Blood Pressure 130/80 121/70 O2 Sat by Pulse 98 98 Oximetry Chest Pain MDM - MDM This is a 28-year-old male who presents to the emergency department for chest pain. Was pt. sent in by a medical professional or institution? @ -No Did you speak to anyone other than the patient for history? @ -No Did you review nursing and triage notes? @ -Yes, and I agree, it is accurate with regards to the patient's symptoms. Were old charts reviewed? @ -No Differential Diagnosis? @ -Differential Chest Pain: Stable Angina, Unstable Angina, STEMI, NSTEMI Aortic Dissection, Pneumothorax, Musculoskeletal, Esophageal Spasm GERD, Cholecystitis, Pancreatitis, Zoster, this is not meant to be an all-inclusive list. EKG interpreted by me (3pts min.)? @ -EKG interpreted by me demonstrating the following: Sinus tachycardia. Ventricular rate 103 bpm, OK interval 130 ms, QRS duration 77 ms, QTc 377 ms. X-rays interpreted by me (1pt min.)? @ -Chest x-ray obtained, my interpretation identifies no localized consolidations or infiltrates. CT interpreted by me (1pt min.)? @ -CTA of the chest obtained. My interpretation identifies no evidence of a pulmonary embolus. U/S interpreted by me (1pt. min.)? @ -Not obtained What testing was considered but not performed? (CT, X-rays, U/S, labs)? Why? @ -None What meds were considered but not given? Why? @ -None Did you discuss the management of the patient with other professionals? @ -Yes, Dr. Hollins, who accepts the patient for admission. Did you reconcile home meds? @ -Yes Was smoking cessation discussed for >3mins.? @ -No Was critical care preformed (if so, how long)? @ -No Were there social determinants of health that impacted care today? How? (Homelessness, low income, unemployed, alcoholism, drug addiction, transportation, low edu. Level, literacy, decrease access to med. care, longterm, rehab)? @ -No Was there de-escalation of care discussed even if they declined? (Discuss DNR or withdrawal of care, Hospice)? @ -No What co-morbidities impacted this encounter? (DM, HTN, Smoking, COPD, CAD, Cancer, CVA, Hep., AIDS, mental health diagnosis, sleep apnea, morbid obesity)? @ -Asthma Was patient admitted / discharged? @ -Admitted. Lab work demonstrates leukocytosis with elevated eosinophils. D- dimer elevated at 4.19 and troponin elevated at 2.1. COVID, influenza, and RSV testing negative. Chest x-ray reveals no acute process. CTA of the chest obtained revealing no evidence of a pulmonary embolus or other acute process. He had been treated with Toradol on arrival and his chest pain had essentially resolved on reevaluation. ED attending Dr. Kendall spoke with cardiology, who advised starting the patient on heparin and ordering an echocardiogram. Patient was started on low intensity heparin protocol and echocardiogram was ordered to be completed in the morning. ED attending also advised a duplex ultrasound of the bilateral lower extremities for evaluation of any clots. This was ordered with results pending at the time of admission. Patient admitted to medicine for chest pain with elevated troponin. Consult placed for cardiology. Serial troponins ordered as well. Case discussed with ED attending, Dr. Kendall. Undiagnosed new problem with uncertain prognosis? @ -None Drug Therapy requiring intensive monitoring for toxicity (Heparin, Nitro, Insulin, Cardizem)? @ -Heparin Were any procedures done? @ -None Diagnosis/symptom? @ -Chest pain, elevated troponin Acute, or Chronic, or Acute on Chronic? @ -Acute Uncomplicated (without systemic symptoms) or Complicated (systemic symptoms)? @ -Uncomplicated Side effects of treatment? @ -None Exacerbation, Progression, or Severe Exacerbation] @ -Not applicable Poses a threat to life or bodily function? @ -Yes, if due to ACS can lead to cardiac arrest and Disposition Clinical Impression: Chest pain, Elevated troponin Disposition: ADMITTED IP TO THIS HOSP
[2024-01-16] MEDS: KETOROLAC 15 MG/ML 1 ML VIAL IVP STA (18:50)
[2024-01-16] MEDS: SODIUM CHLORIDE 0.9% 1,000 ML IV STA (18:51)
[2024-01-16 19:13] LABS: ALT 22 U/L (4-49); AST 43 U/L (17-59); African American GFR (CKD) >90 (>60 ml/min/1.73 sqM); Albumin 4.5 g/dL (3.5-5.0); Alkaline Phosphatase 157 U/L (38-126); Anion Gap 7 mmol/L; Blood Urea Nitrogen 13 mg/dL (9-20); Calcium 9.9 mg/dL (8.4-10.2); Carbon Dioxide 26 mmol/L (22-30); Chloride 104 mmol/L (98-107); Glucose 101 mg/dL (74-99); Non-African American GFR(CKD) >90 (>60 ml/min/1.73 sqM); Potassium 4.1 mmol/L (3.5-5.1); Sodium 137 mmol/L (137-145); Total Bilirubin 1.8 mg/dL (0.2-1.3); Total Protein 7.4 g/dL (6.3-8.2)
[2024-01-16 19:20] LABS: INR 1.1 (<1.2); Partial Thromboplastin Time 29.3 sec (22.0-30.0); Prothrombin Time 12.1 sec (10.0-12.5)
[2024-01-16 19:48] LABS: Basophils % (A) 0 %; Eosinophils % (A) 23 %; HCT 45.8 % (39.0-53.0); HGB 15.1 gm/dL (13.0-17.5); Lymphocytes # (A) 1.7 k/uL (1.0-4.8); Lymphocytes % (A) 13 %; MCH 30.8 pg (25.0-35.0); MCV 93.4 fL (80.0-100.0); Mean Platelet Volume 8.6; Monocytes # (A) 0.8 k/uL (0-1.0); Monocytes % (A) 6 %; Neutrophils # (A) 7.6 k/uL (1.3-7.7); Neutrophils % (A) 57 %; RDW 14.5 % (11.5-15.5); WBC 13.2 k/uL (3.8-10.6)
[2024-01-16 19:54] LABS: Platelet Count 109 k/uL (150-450)
--- NOTE | 2024-01-16 20:22 | XR ---
EXAMINATION TYPE: XR chest 2V DATE OF EXAM: 01/16/2024 COMPARISON: HISTORY: Chest pain TECHNIQUE: Frontal and lateral views of the chest are obtained. FINDINGS: There is no focal air space opacity. No evidence for pneumothorax. No pleural effusion. The cardiac silhouette size is within normal limits. The osseous structures are grossly intact. IMPRESSION: 1. No acute cardiopulmonary process. [facility], , 01/16/2024 8:19 PM
--- NOTE | 2024-01-16 20:33 | CT ---
EXAMINATION TYPE: CT chest angio for PE DATE OF EXAM: 01/16/2024 COMPARISON: None HISTORY: chest pain that is intermittent x2-3 days with a productive cough and nissa. CT DLP: 402.9 mGycm Automated exposure control for dose reduction was used. CONTRAST: CT Chest for pulmonary embolism performed with with IV Contrast, patient injected with 100 ml mL of I sovue 370. FINDINGS: LUNGS: The lungs are grossly clear, there is no concerning parenchymal mass or nodule identified. T here is no pleural effusion or pneumothorax seen. The tracheobronchial tree is patent. MEDIASTINUM: There is satisfactory enhancement of the pulmonary artery and its branches, there is no CT evidence for pulmonary embolism. There are no greater than 1 cm hilar or mediastinal lymph nodes. No pericardial effusion is seen. Limited scanning through the upper abdomen reveals splenomegaly and hepatomegaly. IMPRESSION: 1. No evidence of bone metabolism. 2. No acute cardiopulmonary disease. 3. Splenomegaly and hepatomegaly Follow-up recommendations for incidental pulmonary nodules are per [employer] [place] [employer] or [employer] [place] [employer]. [facility], , 01/16/2024 8:30 PM
[2024-01-16] MEDS ORDERED: HYDROcodone/APAP 5-325MG 1 EACH TAB PO PRN (20:47)
[2024-01-16] MEDS ORDERED: ONDANSETRON 4 MG/2 ML VIAL IVP PRN (20:47)
[2024-01-16] MEDS ORDERED: NALOXONE 0.4 MG/ML 1 ML VIAL IV PRN (20:47)
[2024-01-16] MEDS ORDERED: MORPHINE SULFATE 4 MG/ML SYRINGE IV PRN (20:47)
[2024-01-16] MEDS ORDERED: IBUPROFEN 400 MG TAB PO PRN (20:47)
[2024-01-16] MEDS ORDERED: KETOROLAC 15 MG/ML 1 ML VIAL IVP PRN (20:47)
[2024-01-16] MEDS: HEPARIN SOD,PORK IN 0.45% NACL 25,000 UNIT in 0.45% NACL 1 250ML.BAG IV SCH (20:48)
[2024-01-16] MEDS ORDERED: ALBUTEROL NEBULIZED 2.5 MG/3 ML INHALATION PRN (20:48)
[2024-01-16] MEDS ORDERED: ALBUTEROL HFA INHALER INHALATION PRN (20:48)
[2024-01-16] MEDS: HEPARIN SODIUM 1,000 UN/ML (10ML VL) IV ONE (20:50)
[2024-01-16] MEDS: NICOTINE 21MG/24HR PATCH TRANSDERM STA (20:52)
[2024-01-16] MEDS: FLUTICASONE NASAL 50MCG/SPRAY 16GM BTL EA NOSTRIL SCH (21:05)
[2024-01-16] MEDS: LORATADINE 10 MG TAB PO SCH (21:05)
[2024-01-16] MEDS: PANTOPRAZOLE 40 MG TABLET PO SCH (21:05)
[2024-01-16] MEDS: MONTELUKAST 10 MG TAB PO SCH (21:05)
--- NOTE | 2024-01-17 02:21 | US ---
EXAM: US Duplex Bilateral Lower Extremities Veins CLINICAL HISTORY: ITS.REASON US Reason: Elevated d-dimer TECHNIQUE: Real-time duplex ultrasound scan of the bilateral lower extremity veins integrating B-mode two-dimensional vascular structure, Doppler spectral analysis, color flow Doppler imaging and compression. COMPARISON: No relevant prior studies available. FINDINGS: Right deep veins: Unremarkable. No DVT in the right common femoral, femoral, proximal deep femoral or popliteal veins. The veins demonstrate normal color flow, are normally compressible, with normal phasic flow and/or augmentation response. Right superficial veins: Unremarkable. No thrombus in the visualized right great saphenous vein. Left deep veins: Unremarkable. No DVT in the left common femoral, femoral, proximal deep femoral or popliteal veins. The veins demonstrate normal color flow, are normally compressible, with normal phasic flow and/or augmentation response. Left superficial veins: Unremarkable. No thrombus in the visualized left great saphenous vein. Soft tissues: No acute findings. No popliteal cyst. IMPRESSION: Normal bilateral lower extremity duplex venous ultrasound.
--- NOTE | 2024-01-17 03:07 | P.HPIM ---
History of Present Illness H&P Date: 01/16/24 Patient is a 28-year-old male with PMH of asthma who presents to the emergency room with complaints of chest discomfort and shortness of breath. The patient reports that he has been recovering from a cold over the past several days and has been experiencing mild intermittent substernal chest tightness with associated shortness of breath. Notes that the pain worsened earlier today and persisted for several hours which prompted him to seek medical attention. Notes that the pain was 3 out of 10 at maximal intensity, nonradiating, nonpleuritic, nonexertional, and it was relieved after he drank a slushy this afternoon. Reports being chest pain-free at the time of interview. Denies any prior history of such symptoms. Reports that his cold symptoms of almost resolved. Reports feeling essentially at his baseline. Denies experiencing nausea, vomiting, diaphoresis, dizziness, or diarrhea. Denies lower extremity swelling or pain. Denied recent travel or prolonged immobilization. In the emergency room a chest CTA revealed spinal and hepatomegaly along with hilar and mediastinal lymphadenopathy, suspected reactive. Chest x-ray was unremarkable. EKG was reviewed showing NSR @ [address]-T wave changes noted. Lower extremity venous Doppler was also negative. Laboratory evaluation was remarkable for troponin of 2.110 with WBC count 13.7 platelet count 109 with D-dimer 4.19. ED documentation reviewed and case discussed with ED provider. Review of systems: Pertinent positives and negatives as discussed in HPI, a complete review of systems was performed and all other systems are negative. Physical examination: Vital signs reviewed General: non toxic, no distress, appears at stated age, normal weight Derm: no unusual rashes/lesions, warm Head: atraumatic, normocephalic, symmetric Eyes: EOMI, no lid lag, anicteric sclera, pupils equal round reactive to light ENT: Nose and ears atraumatic Neck: No cervical lymphadenopathy, trachea midline, supple Mouth: no lip lesion, mucus membranes moist Cardiovascular: S1S2 reg, no murmur, positive dorsalis pedis pulse bilateral, no edema Lungs: CTA bilateral, no rhonchi, no rales, no accessory muscle use Abdominal: soft, nontender to palpation, no guarding Ext: muscle strength 5 out of 5 in all 4 extremities grossly, no gross muscle atrophy, no contractures, Neuro: CN II-XI grossly intact, no gross focal neuro deficits Psych: Alert, oriented, appropriate affect Assessment: Elevated troponin, non-ST elevation WA versus myocarditis in setting of recent illness Elevated D-dimer Leukocytosis Thrombocytopenia Imaging: In the emergency room a chest CTA revealed spinal and hepatomegaly along with hilar and mediastinal lymphadenopathy, suspected reactive. Chest x-ray was unremarkable. Lower extremity venous Doppler was also negative. Data Review: Laboratory evaluation was remarkable for troponin of 2.110 with WBC count 13.7 platelet count 109 with D-dimer 4.19. Plan: Case is discussed by ED provider with cardiology on-call who recommended continuing heparin infusion for now Cardiology consulted Continue heparin infusion Echocardiogram ordered Trend troponin Monitor CBC DVT prophylaxis: Heparin infusion The patient is admitted with an anticipated fewer than 2 midnight stay for evaluation of elevated troponin CODE STATUS: Full Code Discussed with: Patient Anticipated discharge place: Home I am ordering 1 Past Medical History Past Medical History: Asthma Additional Past Medical History / Comment(s): kidney stones. History of Any Multi-Drug Resistant Organisms: None Reported Past Surgical History: Back Surgery Past Psychological History: No Psychological Hx Reported Smoking Status: Current every day smoker Past Alcohol Use History: Occasional Past Drug Use History: None Reported Medications and Allergies Home Medications Medication Instructions Recorded Confirmed Type Albuterol Nebulized [Ventolin 2.5 mg INHALATION RT-TID PRN 01/16/24 01/16/24 History Nebulized] Albuterol Sulfate [Albuterol 2 puff INHALATION RT-Q6H PRN 01/16/24 01/16/24 History Sulfate Hfa] Fexofenadine HCl [Maura Allergy] 180 mg PO HS 01/16/24 01/16/24 History Fluticasone Nasal [place] [Flonase 1 spray EA NOSTRIL HS 01/16/24 01/16/24 History Nasal [place]] Montelukast [Singulair] 10 mg PO HS 01/16/24 01/16/24 History Omeprazole 20 mg PO HS 01/16/24 01/16/24 History Allergies Allergy/AdvReac Type Severity Reaction Status Date / Time No Known Allergies Allergy Verified 04/10/23 15:11 Physical Exam Vitals: Vital Signs Temp Pulse Resp BP Pulse Ox 01/17/24 02:00 84 18 120/84 96 01/17/24 00:00 86 18 138/91 97 01/16/24 21:00 90 18 121/70 98 01/16/24 18:26 98.6 F 100 18 130/80 98 Intake and Output 01/16/24 01/16/24 01/17/24 14:59 22:59 06:59 Other: Weight 96.615 kg Results CBC & Chem 7: 01/17/24 02:58 01/16/24 18:37 Labs: Abnormal Lab Results - Last 24 Hours (Table) 01/16/24 01/16/24 01/16/24 Range/Units 18:37 18:37 18:37 WBC 13.2 H (3.8-10.6) k/uL Plt Count 109 L (150-450) k/uL Eosinophils # 3.0 H (0-0.7) k/uL D-Dimer (<0.60) mg/L FEU Glucose 101 H (74-99) mg/dL Total Bilirubin 1.8 H (0.2-1.3) mg/dL Alkaline Phosphatase 157 H (38-126) U/L Troponin I 2.110 H* (0.000-0.034) ng/mL 01/16/24 01/16/24 Range/Units 18:37 21:37 WBC (3.8-10.6) k/uL Plt Count (150-450) k/uL Eosinophils # (0-0.7) k/uL D-Dimer 4.19 H (<0.60) mg/L FEU Glucose (74-99) mg/dL Total Bilirubin (0.2-1.3) mg/dL Alkaline Phosphatase (38-126) U/L Troponin I 2.670 H* (0.000-0.034) ng/mL
[2024-01-17 03:37] LABS: INR 1.1 (<1.2); Prothrombin Time 11.7 sec (10.0-12.5)
[2024-01-17 03:38] LABS: HCT 41.4 % (39.0-53.0); HGB 14.5 gm/dL (13.0-17.5); MCH 32.8 pg (25.0-35.0); MCHC 35.1 g/dL (31.0-37.0); MCV 93.5 fL (80.0-100.0); Mean Platelet Volume 8.7; RBC 4.42 m/uL (4.30-5.90); RDW 15.3 % (11.5-15.5); WBC 14.5 k/uL (3.8-10.6)
[2024-01-17 04:09] LABS: Platelet Count 93 k/uL (150-450)
[2024-01-17] MEDS: HEPARIN SODIUM 1,000 UN/ML (10ML VL) IV PRN (04:27)
[2024-01-17 07:05] LABS: Band Neutrophils % 1 %; Eosinophils # (M) 5.66 k/uL (0-0.7); Lymphocytes # (M) 3.05 k/uL (1.0-4.8); Monocytes # (M) 0.87 k/uL (0-1.0); Neutrophils % (M) 33 %; Nucleated Red Blood Cells 0 /100 WBC (0-0); Total Cells Counted 100
[2024-01-17 07:06] LABS: Anisocytosis (M) Present
[2024-01-17] MEDS ORDERED: REGADENOSON 0.4 MG/5 ML SYRINGE IV PRN (07:51)
[2024-01-17] MEDS ORDERED: AMINOPHYLLINE 500 MG/20 ML VIAL IV PRN (07:51)
[2024-01-17] MEDS ORDERED: CAFFEINE CITRATE 60 MG/3 ML VIAL IV PRN (07:51)
[2024-01-17] MEDS: ASPIRIN 81 MG PO SCH (08:41)
[2024-01-17] MEDS: PANTOPRAZOLE 40 MG/10 ML VIAL IV SCH (08:41)
[2024-01-17] MEDS: METOPROLOL TARTRATE 25 MG TAB PO SCH (08:41)
--- NOTE | 2024-01-17 09:21 | P.CRDCN ---
History of Present Illness History of present illness: HISTORY OF PRESENT ILLNESS: This is a 28-year-old male with a past medical history significant for asthma and nicotine dependence. 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 We have been asked to see the patient in consultation for elevated troponins. Patient examined at the bedside in the emergency room. Patient states he has been having cold symptoms since Saturday. Patient reports having fever, chills, and a productive cough. He states that he got on Saturday and was around a lot of people at his wedding and reports one of his family members was sick. Patient states yesterday morning he began to have chest discomfort. He states it felt like a sharp shooting pain in the middle of his chest. He states the pain has been intermittent for the past 24 hours. He states he did not take any medication to help with the pain. At the time of examination, he denies any chest pain or pressure. He is a current cigarette smoker and smokes half a pack per day. He reports occasional alcohol use. Denies any drug use including marijuana. He states that his mom has a history of an irregular heart rhythm but denies any family history of premature coronary artery disease. DIAGNOSTICS: - EKG reveals sinus mechanism with no signs of acute ischemia - Chest xray negative for acute process - Laboratory data: WBC 14.5. Hemoglobin 14.5. Platelet count 93. D-dimer 4.19 . Sodium 137. Potassium 4.1. BUN 13. Creatinine 1.0. Troponin 2.110. 2.670. 2.560. - Chest CTA: Negative for pulmonary embolism. Splenomegaly and hepatomegaly. - Venous Doppler: Negative for DVT of bilateral lower extremities - Current home cardiac medications include none REVIEW OF SYSTEMS: At the time of my exam: CONSTITUTIONAL: Denies fever or chills. HEENT: Denies blurred vision, vision changes, or eye pain. Denies hemoptysis CARDIOVASCULAR: Denies chest pain. Denies orthopnea. Denies PND. Denies palpitations RESPIRATORY: Denies shortness of breath. GASTROINTESTINAL: Denies abdominal pain. Denies nausea or vomiting. HEMATOLOGIC: Denies bleeding disorders. GENITOURINARY: Denies any blood in urine. SKIN: Denies pruitis. Denies rash. PHYSICAL EXAM: VITAL SIGNS: Reviewed. GENERAL: Well-developed in no acute distress. HEENT: Head is normocephalic. Pupils are equal, round. Sclerae anicteric. Mucous membranes of the mouth are moist. Neck supple. No JVD or thyromegaly LUNGS: Respirations even and unlabored. Lungs essentially clear to auscultation bilaterally. HEART: Regular rate and rhythm. S1 and S2 heard. ABDOMEN: Soft. Nondistended. Nontender. EXTREMITIES: Normal range of motion. No clubbing or cyanosis. Peripheral pulses intact. No lower extremity edema NEUROLOGIC: Awake and alert. Oriented x 3. ASSESSMENT: Recent upper respiratory infection Elevated troponins, NSTEMI; suspected myocarditis Leukocytosis Thrombocytopenia Elevated D-dimer, CTA negative for pulmonary embolism Nicotine dependence Asthma PLAN: Obtain 2D echo to assess cardiac structure and function Continue IV heparin for 24 hours Add aspirin 81 mg daily and atorvastatin 40 mg at night Begin metoprolol 25 mg twice a day. Recommend treatment of myocarditis with metoprolol for 3 months. Patient to undergo Lexiscan stress test today. If abnormal, patient will require cardiac catheterization Further recommendations pending patient course Nurse practitioner note has been reviewed by physician. Signing provider agrees with the documented findings, assessment, and plan of care documented by BOARD WRITER as a scribe. Past Medical History Past Medical History: Asthma Additional Past Medical History / Comment(s): kidney stones. History of Any Multi-Drug Resistant Organisms: None Reported Past Surgical History: Back Surgery Past Psychological History: No Psychological Hx Reported Smoking Status: Current every day smoker Past Alcohol Use History: Occasional Past Drug Use History: None Reported Medications and Allergies Home Medications Medication Instructions Recorded Confirmed Type Albuterol Nebulized [Ventolin 2.5 mg INHALATION RT-TID PRN 01/16/24 01/16/24 History Nebulized] Albuterol Sulfate [Albuterol 2 puff INHALATION RT-Q6H PRN 01/16/24 01/16/24 History Sulfate Hfa] Fexofenadine HCl [Maura Allergy] 180 mg PO HS 01/16/24 01/16/24 History Fluticasone Nasal [place] [Flonase 1 spray EA NOSTRIL HS 01/16/24 01/16/24 History Nasal [place]] Montelukast [Singulair] 10 mg PO HS 01/16/24 01/16/24 History Omeprazole 20 mg PO HS 01/16/24 01/16/24 History Allergies Allergy/AdvReac Type Severity Reaction Status Date / Time No Known Allergies Allergy Verified 04/10/23 15:11 Physical Exam Vitals: Vital Signs Temp Pulse Resp BP Pulse Ox 01/17/24 04:00 75 18 104/57 98 01/17/24 02:00 84 18 120/84 96 01/17/24 00:00 86 18 138/91 97 01/16/24 21:00 90 18 121/70 98 01/16/24 18:26 98.6 F 100 18 130/80 98 Intake and Output 01/16/24 01/16/24 01/17/24 14:59 22:59 06:59 Intake Total 76.167 Balance 76.167 Intake: Intake, IV Titration 76.167 Amount Heparin Sod,Pork in 0.45% 76.167 NaCl 25,000 unit In 0.45 % NaCl 1 250ml.bag @ 10. 35 UNITS/KG/HR 10 mls/hr IV .Q24H [facility] Rx#: [id number] Other: Weight 96.615 kg Results 01/17/24 02:58 01/16/24 18:37 Cardiac Enzymes 01/16/24 01/16/24 01/16/24 Range/Units 18:37 18:37 21:37 AST 43 (17-59) U/L Troponin I 2.110 H* 2.670 H* (0.000-0.034) ng/mL 01/17/24 Range/Units 02:58 AST (17-59) U/L Troponin I 2.560 H* (0.000-0.034) ng/mL Coagulation 01/16/24 01/17/24 01/17/24 Range/Units 18:37 02:58 02:58 PT 12.1 11.7 (10.0-12.5) sec APTT 29.3 31.6 H (22.0-30.0) sec CBC 01/16/24 01/17/24 Range/Units 18:37 02:58 WBC 13.2 H 14.5 H (3.8-10.6) k/uL RBC 4.90 4.42 (4.30-5.90) m/uL Hgb 15.1 14.5 (13.0-17.5) gm/dL Hct 45.8 41.4 (39.0-53.0) % Plt Count 109 L 93 L (150-450) k/uL Comprehensive Metabolic Panel 01/16/24 Range/Units 18:37 Sodium 137 (137-145) mmol/L Potassium 4.1 (3.5-5.1) mmol/L Chloride 104 (98-107) mmol/L Carbon Dioxide 26 (22-30) mmol/L BUN 13 (9-20) mg/dL Creatinine 1.00 (0.66-1.25) mg/dL Glucose 101 H (74-99) mg/dL Calcium 9.9 (8.4-10.2) mg/dL AST 43 (17-59) U/L ALT 22 (4-49) U/L Alkaline Phosphatase 157 H (38-126) U/L Total Protein 7.4 (6.3-8.2) g/dL Albumin 4.5 (3.5-5.0) g/dL Current Medications Generic Name Dose Route Start Last Admin Trade Name Freq PRN Reason Stop Dose Admin Acetaminophen 650 mg 01/16/24 20:47 Acetaminophen Tab 325 Mg Tab PO Q6HR PRN Mild Pain or Fever > 100.5 Hydrocodone Bitart/Acetaminophen 1 each 01/16/24 20:47 Hydrocodone/Apap 5-325mg 1 Each Tab PO Q4HR PRN Moderate Pain (Scale 4 to 6) Albuterol Sulfate 2.5 mg 01/16/24 20:48 Albuterol Nebulized 2.5 Mg/3 Ml INHALATION RT-TID PRN Shortness Of Breath Albuterol Sulfate 2 puff 01/16/24 20:48 Albuterol Hfa Inhaler INHALATION RT-Q6H PRN Shortness Of Breath Fluticasone Propionate 1 spray 01/16/24 21:00 01/16/24 21:05 Fluticasone Nasal 50mcg/[place] 16gm Btl EA NOSTRIL 1 spray HS DIANA Administration Heparin Sodium (Porcine) 0 unit 01/16/24 20:36 01/17/24 04:27 Heparin Sodium 1,000 Un/Ml (10ml Vl) IV 4,000 unit PER PROTOCOL PRN Administration Low PTT Protocol Heparin Sodium/Sodium Chloride 250 mls @ 10 mls/hr 01/16/24 20:45 01/17/24 04:25 25,000 unit/ Sodium Chloride IV 13.35 units/kg/hr .Q24H DIANA 12.898 mls/hr Titration Protocol 10.35 UNITS/KG/HR Ibuprofen 400 mg 01/16/24 20:47 Ibuprofen 400 Mg Tab PO Q6HR PRN Mild Pain or Fever > 100.5 Loratadine 10 mg 01/16/24 21:00 01/16/24 21:05 Loratadine 10 Mg Tab PO 10 mg HS DIANA Administration Montelukast Sodium 10 mg 01/16/24 21:00 01/16/24 21:05 Montelukast 10 Mg Tab PO 10 mg HS DIANA Administration Morphine Sulfate 4 mg 01/16/24 20:47 Morphine Sulfate 4 Mg/Ml Syringe IV Q4HR PRN Severe Pain (Scale 7 to 10) Naloxone HCl 0.2 mg 01/16/24 20:47 Naloxone 0.4 Mg/Ml 1 Ml Vial IV Q2M PRN Opioid Reversal Ondansetron HCl 4 mg 01/16/24 20:47 Ondansetron 4 Mg/2 Ml Vial IVP Q8HR PRN Nausea And Vomiting Pantoprazole Sodium 40 mg 01/17/24 09:00 Pantoprazole 40 Mg/10 Ml Vial IV DAILY DIANA Pantoprazole Sodium 40 mg 01/16/24 21:00 01/16/24 21:05 Pantoprazole 40 Mg Tablet PO 40 mg HS DIANA Administration Intake and Output 01/16/24 01/16/24 01/17/24 14:59 22:59 06:59 Intake Total 76.167 Balance 76.167 Intake: Intake, IV Titration 76.167 Amount Heparin Sod,Pork in 0.45% 76.167 NaCl 25,000 unit In 0.45 % NaCl 1 250ml.bag @ 10. 35 UNITS/KG/HR 10 mls/hr IV .Q24H [facility] Rx#: [id number] Other: Weight 96.615 kg Patient Weight 01/17/24 06:59 Weight 96.615 kg 01/17/24 02:58 01/16/24 18:37
--- NOTE | 2024-01-17 13:00 | NM ---
EXAMINATION TYPE: NM stress lexiscan cardiolite DATE OF EXAM: 01/17/2024 COMPARISON: NONE CLINICAL INDICATION: Male, 28 years old with history of abnormal trops, CP, likely myocarditis; TECHNIQUE: After the intravenous administration of 10.5 mCi Tc 99m Sestamibi - Cardiolite resting SP ECT images acquired 45 minutes post injection. The patient received 0.4mg Lexiscan, 24.2 mCi Tc 99m Sestamibi - Stress images obtained [address] injection FINDINGS: Review of stress and rest SPECT images demonstrates reversible decreased perfusion involving the card iac apex, anterior wall and lateral wall. Gated analysis shows normal wall motion with an estimated l eft ventricular ejection fraction of 58% %. IMPRESSION: SPECT images demonstrates reversible decreased perfusion involving the cardiac apex, anterior wall an d lateral wall. [facility], , 01/17/2024 12:58 PM
--- NOTE | 2024-01-17 13:05 | CA ---
Lexiscan Nuclear Stress Test Report Name: Chuck Malcolm Exam Date: 01/17/2024 11:39 Exam Location: [place] Stress Ht (in): 76 Wt (lb): 213 BSA: 2.28 Ordering Phys: Willa Chery Referring Phys: Gurvinder Technologist: DEJAN Age: 28 Gender: M : 1995 Procedure CPT: Indications: Reflex order-Stress test ICD-10 Codes: Patient History: Chest pain and shortness of breath. Medications: Meds past 24 hrs: Pretest Chest Pain: STRESS TEST Lexiscan Protocol Exercise Duration (min:sec): 02:[address] Depressions (mm): Angina Score: Brand Score: Resting HR (bpm): 80 Peak HR (bpm): 126 Resting BP (mmHg): 121 / 72 Peak BP (mmHg): 112 / 55 MPHR: 192 Target HR: 163 % MPHR: 66 METS: 1.0 Total Dose: Peak Dose: Atropine: Double Product: 30994 BP Response: Stress Termination: Infusion complete Stress Symptoms: No chest pain or symptoms Stress Summary: ECG ANALYSIS Resting ECG: Stress ECG: CONCLUSIONS RESTING EKG: Normal sinus rhythm Patient recieved IV infusion of Lexiscan 0.4mg and at peak infusion STRESS EKG showed: No significant ST-T wave changes that are diagnostic for ischemia by ST segment analysis ARRYTHMIAS: [No ectopic rhythms or sustained arrythmias] CONCLUSION: Patient admitted treadmill stress test but could not achieve target heart rate therefore the protocol of treadmill nuclear stress test was changed to Lexiscan nuclear. 1. Normal hemodynamic and clinical response to Lexiscan infusion. 2. Non-ischemic EKG response to lexiscan infusion Please refer to the nuclear imaging portion of this stress test for complete interpretation of the study. Dr Panfilo Pulido (Electronically Signed) Final Date: 17 January 2024 13:05
--- NOTE | 2024-01-17 13:14 | CA ---
Transthoracic Echo Report Name: Chuck Malcolm Age: 28 Gender: M : 1995 Exam Date: 01/17/2024 07:45 Exam Location: [place] Echo Ht (in): 76 Wt (lb): 213 Ordering Physician: Staci Harris Attending/Referring Phys: Back Seam Stitcher Nunu Webb RDCS Procedure CPT: Indications: chest pain, elevated troponin, Non-ST elevation (NSTEMI) myocardial infarction Cardiac Hx: Technical Quality: Fair Contrast 1: Total Dose (mL): Contrast 2: Total Dose (mL): MEASUREMENTS (Male / Female) Normal Values 2D ECHO LV Diastolic Diameter PLAX 4.1 cm 4.2 - 5.9 / 3.9 - 5.3 cm LV Systolic Diameter PLAX 2.5 cm IVS Diastolic Thickness 1.0 cm 0.6 - 1.0 / 0.6 - 0.9 cm LVPW Diastolic Thickness 1.2 cm 0.6 - 1.0 / 0.6 - 0.9 cm LV Relative Wall Thickness 0.6 RV Internal Dim ED PLAX 4.2 cm LA Volume 33.4 cm??? 18 - 58 / 22 - 52 cm??? LA Volume Index 14.6 cm???/m??? 16 - 28 cm???/m??? M-MODE Aortic Root Diameter MM 2.8 cm LA Systolic Diameter MM 3.0 cm LA Ao Ratio MM 1.1 AV Cusp Separation MM 2.1 cm DOPPLER AV Peak Velocity 125.4 cm/s AV Peak Gradient 6.3 mmHg AV Mean Velocity 92.2 cm/s AV Mean Gradient 3.7 mmHg AV Velocity Time Integral 22.5 cm LVOT Peak Velocity 106.8 cm/s LVOT Peak Gradient 4.6 mmHg LVOT Velocity Time Integral 21.1 cm MV Area PHT 3.5 cm??? Mitral E Point Velocity 78.9 cm/s Mitral A Point Velocity 63.8 cm/s Mitral E to A Ratio 1.2 MV Deceleration Time 219.7 ms MV E' Velocity 7.8 cm/s Mitral E to MV E' Ratio 10.1 FINDINGS Left Ventricle Normal Left ventricular size. Mildly increased wall thickness. Normal systolic function with no obvious regional wall motion abnormalities. Normal Left ventricular diastolic filling pattern. Left ventricular ejection fraction is estimated at 55-60 %. Right Ventricle Normal RV size. Right ventricular systolic pressure within normal limits. Right Atrium Normal right atrial size. Left Atrium Normal left atrial size. Mitral Valve Structurally normal mitral valve. No mitral stenosis, regurgitation or prolapse. Aortic Valve Trileaflet aortic valve. No aortic valve stenosis or regurgitation. Tricuspid Valve Structurally normal tricuspid valve. No tricuspid stenosis, regurgitation or prolapse. Pulmonic Valve Structurally normal pulmonic valve. Pericardium Normal pericardium. Aorta Normal size aortic root and proximal ascending aorta. CONCLUSIONS LVEF 55 to 60% Mild concentric LVH Normal RV size and systolic function No significant regional wall motion abnormality No significant valve dysfunction Previewed by: Dr Panfilo Pulido (Electronically Signed) Final Date: 17 January 2024 13:14
[2024-01-17] MEDS ORDERED: NITROGLYCERIN SL TABS 0.4 MG TAB SUBLINGUAL PRN (13:46)
[2024-01-17] MEDS ORDERED: ALPRAZolam 0.25 MG TAB PO PRN (13:46)
[2024-01-17] MEDS ORDERED: ALPRAZolam 0.5 MG TAB PO PRN (13:46)
[2024-01-17] MEDS: SODIUM CHLORIDE 0.9% 1,000 ML in EMPTY BAG 1 BAG IV SCH (14:01)
[2024-01-17] MEDS: ATORVASTATIN 40 MG TAB PO SCH (14:08)
[2024-01-17] MEDS: ASPIRIN 325 MG TAB PO STA (14:08)
--- NOTE | 2024-01-17 15:13 | P.PN ---
Subjective Progress Note Date: 01/17/24 Hospital course: Patient is a very pleasant 28-year-old male with a past medical of asthma. He presented to the emergency department on 01/16/2024 with a chief complaint of chest pain and shortness of breath. Patient reports recent upper respiratory infection beginning 01/12/2024 and lasting for a few days prior to mostly resolving. He reports since resolution of this cold/infection he has been experiencing intermittent chest tightness and pain accompanied by shortness of breath worse with any exertion. Upon arrival to our facility patient underwent evaluation in the emergency department. Vital signs upon arrival show blood pressure 130/80, heart rate 100, respiratory rate 18, temp 98.6 F, and SpO2 of 90% on room air. EKG was completed showing normal sinus rhythm at 80 bpm with no noted T wave or ST abnormality showing no signs of acute ischemia upon personal review and interpretation. Chest x-ray negative for acute cardiopulmonary process. Labs completed and reviewed. CBC showing leukocytosis with WBC count of 13.2 and thrombocytopenia with platelet count of 109. BMP unremarkable. Blood glucose 101. Magnesium 2.0. Liver profile showing elevated total bili of 1.8 and alkaline phosphatase elevated at 157. Troponin was elevated at 2.110 and D-dimer also elevated at 4.19. CTA chest was completed negative for acute cardiopulmonary process but did reveal splenomegaly and hepatomegaly. Patient was started on low intensity heparin infusion for treatment of NSTEMI and admitted under our services with consultation to cardio logy. Bilateral lower extremity Dopplers were completed negative for DVT. Troponins trended resulting at 2.110, 2.670, and 2.560. Patient was evaluated by cardiology and taken for stress test. Stress test revealing nonischemic EKG response to Lexiscan infusion and Mercedes scan reporting reversible decreased perfusion involving the cardiac apex, anterior wall, and lateral wall. Echocardiogram completed showing a preserved EF of 55 to 60% with no significant valvular or structural abnormalities reported. Patient scheduled to undergo cardiac cath later this afternoon. Physical exam: Patient seen and fully evaluated at bedside upon return from stress testing. He currently denies having any chest pain, palpitations, shortness of breath, or any other complaints at rest. Patient was updated and Lexiscan stress test results and cardiology's plans for cardiac catheterization later this afternoon. Discussed with patient and patient's mother via telephone. Patient denies having any other questions, needs, concerns, or complaints at this time. Vital signs reviewed and stable. General: Nontoxic, no distress and appears stated age. Derm: Skin warm and dry, normal coloration for ethnicity. Head: Atraumatic, normocephalic and symmetric. Eyes: EOM's intact, no lid lag, and anicteric sclera Mouth: no lip lesions, mucus membranes moist Cardiovascular: regular rate and rhythm with normal S1S2, no murmur, positive posterior tibial pulses bilaterally, and cap refill < 2 seconds. Lungs: Respirations even, regular, and unlabored on room air. Lungs CTA bilaterally, no rhonchi, no rales, no wheezing, and no accessory muscle usage. Abdominal: soft, nontender to palpation, no guarding, no appreciable organomegaly Ext: ROM intact. No gross muscle atrophy, no edema, no contractures Neuro: Speech clear, face symmetrical and CN II-XII grossly intact with no noted focal neuro deficits Psych: Alert and oriented to person, place, time, and situation. Appropriate and pleasant affect. Assessment and Plan of Care: NSTEMI -Cardiology following, discussed case with cardiac CLINICAL QUALITY ANALYST and after stress test patient charging manipulator is taking patient for cardiac cath later today. -Bilateral lower extremity Dopplers were completed negative for DVT. -Troponins trended resulting at 2.110, 2.670, and 2.560. -Stress test revealing nonischemic EKG response to Lexiscan infusion and Mercedes scan reporting reversible decreased perfusion involving the cardiac apex, anterior wall, and lateral wall. -Echocardiogram completed showing a preserved EF of 55 to 60% with no significant valvular or structural abnormalities reported. -Patient to remain on continuous telemetry monitoring. -Continue heparin infusion with close monitoring of PTT for goal therapeutic range of 45-79 seconds -Continue aspirin 81 mg daily and atorvastatin 40 mg nightly -Lipid profile pending. Incidental findings of hepatomegaly and splenomegaly Elevated liver enzymes Recent viral infection -Patient denies any drug use and reports only occasional and rare alcohol use, denies binge drinking behaviors, or any history of IVDA. -Influenza A, influenza B, COVID, and RSV were negative. -Order placed for EBV panel. Nicotine dependence -Recommend smoking cessation, order placed for nicotine patch 21 mg daily. Data and imaging reviewed: -Bilateral lower extremity Dopplers were completed negative for DVT. -Troponins trended resulting at 2.110, 2.670, and 2.560. Morning PTT is subtherapeutic at 31.6, heparin infusion increased to 13.35 units/kg/h. -Stress test revealing nonischemic EKG response to Lexiscan infusion and Mercedes scan reporting reversible decreased perfusion involving the cardiac apex, anterior wall, and lateral wall. -Echocardiogram completed showing a preserved EF of 55 to 60% with no significant valvular or structural abnormalities reported. -Vital signs reviewed. Blood pressure 120/86, heart rate 80, respiratory rate 18, and SpO2 of 97% on room air. CODE STATUS: Full code DVT prophylaxis: Heparin Discussed with: Patient, RN, patient's mother, and cardiology CLINICAL QUALITY ANALYST Anticipated discharge date: Pending clinical course Anticipated discharge place: Home Patient was seen independently by Nurse Pracitioner. This document was prepared using [employer] dictation software. Please allow for errors in electrician maintenance, while rare they do occur. I reviewed the documentation as provided by the KATLYN above, who is the original author of this note. I agree with the documented assessment and plan, with the following changes: none Objective - Vital Signs Vital signs: Vital Signs Temp 98.6 F 01/16/24 18:26 Pulse 75 01/17/24 04:00 Resp 18 01/17/24 04:00 BP 104/57 01/17/24 04:00 Pulse Ox 98 01/17/24 04:00 FiO2 Intake & Output 01/16/24 01/17/24 01/17/24 18:59 06:59 18:59 Intake Total 76.167 Balance 76.167 Weight 96.615 kg Intake: Intake, IV Titration 76.167 Amount Heparin Sod,Pork in 0.45% 76.167 NaCl 25,000 unit In 0.45 % NaCl 1 250ml.bag @ 10. 35 UNITS/KG/HR 10 mls/hr IV .Q24H [facility] Rx#: [id number] - Labs CBC & Chem 7: 01/17/24 02:58 01/16/24 18:37 Labs: Abnormal Lab Results - Last 24 Hours (Table) 01/16/24 01/16/24 01/16/24 Range/Units 18:37 18:37 18:37 WBC 13.2 H (3.8-10.6) k/uL Plt Count 109 L (150-450) k/uL Eosinophils # 3.0 H (0-0.7) k/uL Eosinophils # (Manual) (0-0.7) k/uL APTT (22.0-30.0) sec D-Dimer (<0.60) mg/L FEU Glucose 101 H (74-99) mg/dL Total Bilirubin 1.8 H (0.2-1.3) mg/dL Alkaline Phosphatase 157 H (38-126) U/L Troponin I 2.110 H* (0.000-0.034) ng/mL 01/16/24 01/16/24 01/17/24 Range/Units 18:37 21:37 02:58 WBC (3.8-10.6) k/uL Plt Count (150-450) k/uL Eosinophils # (0-0.7) k/uL Eosinophils # (Manual) (0-0.7) k/uL APTT 31.6 H (22.0-30.0) sec D-Dimer 4.19 H (<0.60) mg/L FEU Glucose (74-99) mg/dL Total Bilirubin (0.2-1.3) mg/dL Alkaline Phosphatase (38-126) U/L Troponin I 2.670 H* (0.000-0.034) ng/mL 01/17/24 01/17/24 Range/Units 02:58 02:58 WBC 14.5 H (3.8-10.6) k/uL Plt Count 93 L (150-450) k/uL Eosinophils # (0-0.7) k/uL Eosinophils # (Manual) 5.66 H (0-0.7) k/uL APTT (22.0-30.0) sec D-Dimer (<0.60) mg/L FEU Glucose (74-99) mg/dL Total Bilirubin (0.2-1.3) mg/dL Alkaline Phosphatase (38-126) U/L Troponin I 2.560 H* (0.000-0.034) ng/mL
[2024-01-17] MEDS: LIDOCAINE 1% INJ 10MG/ML (20 ML MDV) SQ ONE (15:33)
[2024-01-17] MEDS: fentaNYL (PF) 50 MCG/ML 2 ML AMP IVP ONE (15:33)
[2024-01-17] MEDS: MIDAZOLAM 2 MG/2 ML VIAL IVP ONE (15:33)
[2024-01-17] MEDS: VERAPAMIL SYRINGE (5 MG/10 ML) INTRAARTER ONE (15:34)
[2024-01-17] MEDS: HEPARIN SODIUM 1,000 UN/ML (10ML VL) IVP ONE (15:40)
[2024-01-17] MEDS: IOPAMIDOL-370 100ML BTL INJ ONE (15:42)
[2024-01-17] MEDS: HEPARIN SODIUM,PORCINE 10,000 UNIT in SODIUM CHLORIDE 0.9% 1,000 ML IRRIGATION PRN (15:43)
[2024-01-17] MEDS: SODIUM CHLORIDE 0.9% 1,000 ML IV ONE (15:43)
[2024-01-17] MEDS: HEPARIN SODIUM,PORCINE (1 ML) 2,500 UNIT in SODIUM CHLORIDE 0.9% 250 ML IRRIGATION PRN (15:43)
[2024-01-17] MEDS: ATORVASTATIN 80 MG TAB PO STA (16:11)
[2024-01-17] MEDS: NICOTINE 21MG/24HR PATCH TRANSDERM SCH (16:15)
[2024-01-17 22:17] LABS: EBV-EA (IgG) <0.2 AI; EBV-EBNA(IgG) 6.5; EBV-VCA (IgG) 6.6 AI
[2024-01-18 00:50] LABS: EBV-VCA (IgM) 0.5 AI
[2024-01-18 07:13] LABS: HCT 38.4 % (39.0-53.0); HGB 13.4 gm/dL (13.0-17.5); MCH 32.8 pg (25.0-35.0); MCHC 34.9 g/dL (31.0-37.0); MCV 93.8 fL (80.0-100.0); Mean Platelet Volume 8.7; RDW 15.2 % (11.5-15.5); WBC 15.5 k/uL (3.8-10.6)
[2024-01-18 07:16] LABS: Platelet Count 69 k/uL (150-450)
[2024-01-18 07:39] LABS: ALT 20 U/L (4-49); AST 40 U/L (17-59); African American GFR (CKD) >90 (>60 ml/min/1.73 sqM); Albumin 3.8 g/dL (3.5-5.0); Alkaline Phosphatase 138 U/L (38-126); Anion Gap 6 mmol/L; Blood Urea Nitrogen 13 mg/dL (9-20); Carbon Dioxide 27 mmol/L (22-30); Chloride 104 mmol/L (98-107); Glucose 94 mg/dL (74-99); Magnesium 1.9 mg/dL (1.6-2.3); Non-African American GFR(CKD) >90 (>60 ml/min/1.73 sqM); Potassium 4.3 mmol/L (3.5-5.1); Sodium 137 mmol/L (137-145); Total Bilirubin 1.9 mg/dL (0.2-1.3); Total Protein 6.6 g/dL (6.3-8.2)
--- NOTE | 2024-01-18 10:59 | P.CARDCATH ---
Description of Procedure: PROCEDURES PERFORMED: Left heart catheterization, bilateral coronary angiography, ultrasound guided arterial access INDICATION: non-STEMI CONSENT:I have discussed the risks, benefits and alternative therapies for the above-mentioned procedure and for both sedation/analgesia as well as necessary blood product administration, if indicated, as they pertain to this patient. The patient has indicated understanding and acceptance of the risks and procedures discussed. PROCEDURE: After the risks, benefits and alternatives of the above mentioned procedure explained in detail with the patient, informed consent was obtained. Patient was taken to the catheterization lab and prepped and draped in usual fashion. Ultrasound guidance was used to assess for arterial access. 1% lidocaine was used to anesthetize the right radial artery. A 6-Namibian sheath was placed in the right radial artery using modified Seldinger technique and ul trasound guidance. Left coronary angiography was performed with a 5-Namibian JL 3.5 catheter and right coronary angiography was performed with a 5-Namibian FR5 catheter in various views. A 5-Namibian FR5 catheter was inserted into the left ventricle and pressure measurements were obtained. The right radial sheath was removed and a TR band was placed with hemostasis achieved. The patient tolerated the procedure well. Patient was transported back to the post catheterization holding area in stable condition. Conscious Sedation: Patient was monitored under the direct supervision of myself for conscious sedation using Versed and fentanyl for a total duration of 8 minutes HEMODYNAMICS: Aorta: 128/72 LV: 125/5, LVEDP 20 SELECTIVE CORONARY ARTERIOGRAPHY: LEFT MAIN: The left main is a large caliber vessel which bifurcates into the LAD and circumflex. There is no significant stenosis. LEFT ANTERIOR DESCENDING CORONARY ARTERY: LAD is a large caliber vessel which wraps around to the apex. There is no significant stenosis. LEFT CIRCUMFLEX CORONARY ARTERY: Left circumflex is a moderate caliber vessel without significant stenosis. RIGHT CORONARY ARTERY: The right coronary artery is a large caliber vessel which gives off a PDA and PLV branch and is the dominant vessel. There is no significant stenosis. FINAL IMPRESSION: 1. Normal coronary arteries as described above. 2. High left sided filling pressures PLAN: 1. Aggressive risk factor modification per most recent ACC/AHA guidelines. 2. Follow-up in the office in 1-2 weeks.
[2024-01-18 12:40] LABS: Glucose,Whole Blood 99 mg/dL (70-110)
--- NOTE | 2024-01-18 13:12 | CT ---
EXAMINATION TYPE: CODE STROKE: CT brain wo contr DATE OF EXAM: 01/18/2024 COMPARISON: None INDICATION: CODE STROKE DLP: 1231.6 mGycm, Automated exposure control for dose reduction was used. CONTRAST: None CT of the brain is performed utilizing 3 mm thick sections through the posterior fossa and 3 mm thick sections through the remaining calvarium. Study is performed within 24 hours of arrival to the hosp ital. No abnormal hyperdensity is present to suggest an acute intracranial hemorrhage. No mass lesion is evident. No acute infarcts are evident. Ventricles and sulci are appropriate for the patient age. Paranasal sinuses and mastoid air cells within the [id number] are clear. IMPRESSION: 1. No acute intracranial process. Follow up MRI can be performed as clinically indicated. [facility], Workstation: [facility], 01/18/2024 1:09 PM
--- NOTE | 2024-01-18 13:59 | P.CNNES ---
History of Present Illness Consult date: 01/18/24 Requesting physician: Tylor Christian Reason for Consult: new onset memory loss, elevated inflammatory markers d- dimer, elevated trop History of Present Illness: Patient is a 28-year-old right-handed male, otherwise healthy, came to the hospital by ambulance 2 days ago, on 01/16/2024 at 5:58 PM, for chest pain over the past few days. It was mentioned patient has been fighting a cold with congestion that started on 01/13/2024 but on the day of admission (on ) he developed chest pressure was too much and has him concerned. He went to urgent care, where he was not noted to have any breathing difficulty. However he was transferred to [facility]. Patient's blood pressure was 128/83 pulse rate 121 respiration 24. EKG shows sinus tachycardia. Blood test shows elevated WBC 13.2 with normal hemoglobin and platelets are slightly low 109. PT PTT normal. Basic metabolic panel normal. Patient's troponins were elevated to 0.110. Influenza screen, RSV and coronavirus PCR is negative. EBV IgG positive but IgM is negative. Patient underwent cardiac catheterization yesterday, which did not reveal any significant disease. Heparin was discontinued patient placed on aspirin. This morning, at around 12:40 PM patient developed acute mental confusion, asked his "where am yes I?. Patient's took him to the shower, and he started taking shower with his glasses. When he came back, he did not remember taking stickers off, does not remember the nurse coming and seeing him and wrapping the IV. He did not remember when he came here. For acute onset of mental confusion, patient had a stroke code activated for acute onset of memory loss. Last known well was 12:40 PM. Patient's initial NIH stroke scale is 1. Patient was sent for CT head. It revealed no acute process. I personally reviewed CT head, agree with the findings. When he returned back from CT head, patient started complaining of numbness of the whole right arm. There was no involvement of the face or the leg region. He is also feeling very cold. Also started having some headache. Patient's repeat NIH stroke scale was 2, related to right arm tingling and numbness. Patient's vitals are stable with blood pressure 117/80, pulse rate 91 temperature 97.8. Stroke team contacted Dr. Maurice, who recommended stat MRI of the brain. Patient has history of sporadic migraine, the last 1 was about couple years ago. He does not get any aura. Patient has history of smoking half pack per day since age 18. Denies any heavy drinking, or any drug use. Patient states that for last 6 months he has been having bouts of coughing at night, and then he vomits. It is happening almost on a nightly basis. Patient also has history of lumbar surgery in the past. Review of Systems All pertinent positives related to HPI. Otherwise negative. Past Medical History Past Medical History: Asthma Additional Past Medical History / Comment(s): kidney stones. History of Any Multi-Drug Resistant Organisms: None Reported Past Surgical History: Back Surgery Additional Past Surgical History / Comment(s): ear tubes Past Anesthesia/Blood Transfusion Reactions: No Reported Reaction Past Psychological History: No Psychological Hx Reported Smoking Status: Current every day smoker Past Alcohol Use History: Occasional Past Drug Use History: None Reported - Past Family History Mother Family Medical History: Diabetes Mellitus Medications and Allergies Home Medications Medication Instructions Recorded Confirmed Type Albuterol Nebulized [Ventolin 2.5 mg INHALATION RT-TID PRN 01/16/24 01/16/24 His tory Nebulized] Albuterol Sulfate [Albuterol 2 puff INHALATION RT-Q6H PRN 01/16/24 01/16/24 H istory Sulfate Hfa] Fexofenadine HCl [Maura Allergy] 180 mg PO HS 01/16/24 01/16/24 History Fluticasone Nasal [place] [Flonase 1 spray EA NOSTRIL HS 01/16/24 01/16/24 History Nasal [place]] Montelukast [Singulair] 10 mg PO HS 01/16/24 01/16/24 History Omeprazole 20 mg PO HS 01/16/24 01/16/24 History Allergies Allergy/AdvReac Type Severity Reaction Status Date / Time No Known Allergies Allergy Verified 04/10/23 15:11 Physical Examination - Vital Signs Vital Signs: Vital Signs Temp Pulse Pulse Resp BP BP Pulse Ox 01/18/24 12:25 97.8 F 91 18 117/80 98 01/18/24 08:43 97.8 F 73 18 145/83 97 01/18/24 04:23 84 18 115/72 98 01/17/24 23:19 85 16 123/79 99 01/17/24 20:32 98.9 F 89 16 123/75 99 01/17/24 18:33 97 01/17/24 17:41 83 16 126/81 01/17/24 16:55 78 16 131/83 98 01/17/24 16:40 83 16 123/76 98 01/17/24 16:25 82 16 116/75 98 01/17/24 16:10 88 16 121/75 98 01/17/24 14:53 83 18 126/89 98 Intake and Output 01/17/24 01/18/24 01/18/24 22:59 06:59 14:59 Intake Total 470 Balance 470 Intake: IV 70 Oral 400 Other: Voiding Method Toilet Toilet # Voids 1 1 Weight 96.615 kg 92.8 kg Patient is a young male, in no acute distress. Patient is alert awake patient knows it is 2023, but could not tell the month. He knows his age 28, and his date of . Patient knows he is in the hospital but does not know the name. He knows that he lives in [place] in [place]. Speech and language functions are normal. Patient can name and repeat very well. He was able to name all objects presented, able to describe the picture clearly. No aphasia or dysarthria. No paraphasic errors noted. Attention, concentration and fund of knowledge is adequate. On cranial nerve examination, pupils are equal, round and reacting to light, visual mann are full on confrontation, with no neglect on double simultaneous stimulation. Extraocular muscles are intact with no nystagmus. Face is symmetric, tongue protrudes to the midline. Palatal elevation and sensation normal, hearing and shoulder shrug normal, facial sensation normal. On muscle strength testing, there is a very mild right pronator drift and the strength is normal in arms and legs distally and proximally. Deep tendon reflexes are symmetric (right/left) [] Sensory to touch is slightly decreased in the right upper limb as compared to the left, but is equal on the face in the legs. Cerebellar function showed very mild ataxia for [id number] testing in the upper extremities. No ataxia for [id number] testing on either side. Tone and bulk of muscles normal. Gait deferred.. On general examination, there is no carotid bruit or murmur, S1-S2 audible. Chest is clear on consultation. Abdomen is soft nontender. bowel sounds present. Peripheral pulses are present. No peripheral edema. Results - Laboratory Findings CBC and BMP: 01/18/24 06:45 01/18/24 06:45 Abnormal Lab Findings: Abnormal Labs 01/16/24 01/16/24 01/16/24 18:37 18:37 18:37 WBC 13.2 H RBC Hct Plt Count 109 L Eosinophils # 3.0 H Eosinophils # (Manual) APTT D-Dimer Glucose 101 H Total Bilirubin 1.8 H Alkaline Phosphatase 157 H Troponin I 2.110 H* Triglycerides VLDL Cholesterol, Calc HDL Cholesterol EBV Capsid Ag IgG Intrp EBV Nuc Ag IgG Interp 01/16/24 01/16/24 01/17/24 18:37 21:37 02:58 WBC RBC Hct Plt Count Eosinophils # Eosinophils # (Manual) APTT 31.6 H D-Dimer 4.19 H Glucose Total Bilirubin Alkaline Phosphatase Troponin I 2.670 H* Triglycerides VLDL Cholesterol, Calc HDL Cholesterol EBV Capsid Ag IgG Intrp EBV Nuc Ag IgG Interp 01/17/24 01/17/24 01/17/24 02:58 02:58 14:27 WBC 14.5 H RBC Hct Plt Count 93 L Eosinophils # Eosinophils # (Manual) 5.66 H APTT D-Dimer Glucose Total Bilirubin Alkaline Phosphatase Troponin I 2.560 H* Triglycerides 225.00 H VLDL Cholesterol, Calc 45.00 H HDL Cholesterol 25.00 L EBV Capsid Ag IgG Intrp EBV Nuc Ag IgG Interp 01/17/24 01/18/24 01/18/24 14:27 06:45 06:45 WBC 15.5 H RBC 4.10 L Hct 38.4 L Plt Count 69 L Eosinophils # Eosinophils # (Manual) APTT D-Dimer Glucose Total Bilirubin 1.9 H Alkaline Phosphatase 138 H Troponin I Triglycerides VLDL Cholesterol, Calc HDL Cholesterol EBV Capsid Ag IgG Intrp Positive A EBV Nuc Ag IgG Interp Positive A Assessment and Plan Assessment: * Acute onset of amnesia. Rule out transient global amnesia. However patient has developed new onset numbness of the right arm. Rule out stroke/TIA. Patient's last known well was 12:30 PM. * Acute viral illness * Possible myocarditis with elevated cardiac enzymes, negative cath. * Hepatosplenomegaly. * Thrombocytopenia * Leukocytosis * Hypothyroidism * Rule out vasculitis. * Previous history of EBV (IgG positive). Plan: * Patient's current NIH stroke scale is 4 (related to not able to remember month, mild right pronator drift, right arm numbness and right arm ataxia). * CT head revealed no acute process. * Patient undergoing MRI of the brain without contrast stat. * EEG. * Neurointervention also on the case. * We will follow. * Thank you for the consult. Addendum: MRI of the brain without contrast revealed acute diffuse ischemic changes within bilateral centrum semiovale and periventricular white matter. Some cerebellar acute ischemic changes are present. Findings suggest showering emboli. I personally reviewed MRI, and there is evidence of linear ischemic lesions in the watershed territory between the CHARLINE/MCA territories bilaterally. 1 lesion involving left thalamus and a few in the basal ganglia as well. On correlating MRI with the CT head, there is at least 1 area of hypodensity adjacent to the left frontal horn of lateral ventricle, which appears subacute in nature. Given numerous areas of small infarctions, and unclear onset time, and low NIH stroke scale and without any LVO, risks of TNK outweigh the benefits. Neurointervention Dr. Palacio did not recommend tPA, and I agree. Dr. León recommended Plavix. Patient did have a stat CTA of head and neck which revealed no evidence of dissection of the cervical internal carotid arteries or vertebral arteries or any evidence of significant stenosis at the carotid bifurcations. No evidence of intracranial high-grade stenosis or intracranial aneurysm. Discussed with patient's , patient's mother in detail about above test results, and about the risks and benefits of TNK. They expressed understanding. Patient's overall picture is concerning for vasculitis. We discussed about lumbar puncture, to evaluate for vasculitis. Apparently because of low platelets (<100), we will defer lumbar puncture at this time. We will start Plavix 75 mg immediately, if no medical contraindications. Recommend CAROL to rule out embolic source. Recommend blood workup to rule out hypercoagulable state. Patient will undergo detailed blood test to evaluate for possible vasculitis. Discussed with primary team in detail as well. Time with Patient: Greater than 30 (Greater than 90 minutes in coordinating care, besides history and examination.)
--- NOTE | 2024-01-18 14:12 | MR ---
EXAMINATION TYPE: MR brain wo con DATE OF EXAM: 01/18/2024 COMPARISON: CT brain 01/18/2024 HISTORY: Episode of forgetfulness. CONTRAST: Performed utilizing 0 mL intravenous Gadavist gadolinium contrast. TECHNIQUE: Multiplanar, multiecho imaging on a 3.0 Yissel magnet is performed through the brain. Stud y is performed within 24 hours of arrival to the hospital. The craniovertebral junction is normal. The pituitary is normal. Diffusion-weighted imaging is performed. Couple of small areas of increased signal is within the pos terior right inferior cerebellum could be some acute ischemic change. There are scattered small areas of hyperintensity within the posterior occipital regions bilaterally. Scattered punctate white matte r changes are through the bilateral centrum semiovale and periventricular white matter compatible fei e acute ischemic changes. This is supra tentorial and infratentorial as well as bilateral. Multiple s cattered small emboli may be present. Findings suggest showering emboli. The cerebellar areas are visible on the T2-weighted sequences. Some of the white matter changes ident ified within the centrum semiovale. Jugular white matter on the T2-weighted sequences. Couple of small vascular malformation such as cavernous angiomas may be in the posterior left centrum semiovale. Subtle hemosiderin staining may be present portions of these acute ischemic changes inclu ding cerebellum. Ventricles and sulci are appropriate for the patient age. IMPRESSION: 1. Acute diffuse ischemic changes within bilateral centrum semiovale and periventricular white matter . Some cerebellar acute ischemic changes are present. Findings suggest showering emboli. [facility], Workstation: [facility], 01/18/2024 2:10 PM
--- NOTE | 2024-01-18 14:21 | P.PN ---
Subjective Progress Note Date: 01/18/24 HISTORY OF PRESENT ILLNESS: This is a 28-year-old male with a past medical history significant for asthma and nicotine dependence. 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 We have been asked to see the patient in consultation for elevated troponins. Patient examined at the bedside in the emergency room. Patient states he has been having cold symptoms since Saturday. Patient reports having fever, chills, and a productive cough. He states that he got on Saturday and was around a lot of people at his wedding and reports one of his family members was sick. Patient states yesterday morning he began to have chest discomfort. He states it felt like a sharp shooting pain in the middle of his chest. He states the pain has been intermittent for the past 24 hours. He states he did not take any medication to help with the pain. At the time of examination, he denies any chest pain or pressure. He is a current cigarette smoker and smokes half a pack per day. He reports occasional alcohol use. Denies any drug use including marijuana. He states that his mom has a history of an irregular heart rhythm but denies any family history of premature coronary artery disease. DIAGNOSTICS: - EKG reveals sinus mechanism with no signs of acute ischemia - Chest xray negative for acute process - Laboratory data: WBC 14.5. Hemoglobin 14.5. Platelet count 93. D-dimer 4.19. Sodium 137. Potassium 4.1. BUN 13. Creatinine 1.0. Troponin 2.110. 2.670. 2.560. - Chest CTA: Negative for pulmonary embolism. Splenomegaly and hepatomegaly. - Venous Doppler: Negative for DVT of bilateral lower extremities - Current home cardiac medications include none - [facility] 01/17/24 revealed normal coronary arteries - ECHO with EF 55-60%, no significant valve issues 01/18/2024 Patient had sudden onset of short-term memory loss and code stroke was called. He was apparently up taking shower when he did not know why he was in the hospital. No chest pain or pressure. No shortness of breath. No headache, numbness or weakness. Coordination intact. PHYSICAL EXAM: VITAL SIGNS: Reviewed. GENERAL: Well-developed in no acute distress. HEENT: Head is normocephalic. Pupils are equal, round. Sclerae anicteric. Mucous membranes of the mouth are moist. Neck supple. No JVD or thyromegaly LUNGS: Respirations even and unlabored. Lungs essentially clear to auscultation bilaterally. HEART: Regular rate and rhythm. S1 and S2 heard. ABDOMEN: Soft. Nondistended. Nontender. EXTREMITIES: Normal range of motion. No clubbing or cyanosis. Peripheral pulses intact. No lower extremity edema. Right radial site with no redness or swelling. NEUROLOGIC: Awake and alert. Oriented x 3. ASSESSMENT: Recent upper respiratory infection Elevated troponins, NSTEMI; suspected myocarditis Leukocytosis Thrombocytopenia Elevated D-dimer, CTA negative for pulmonary embolism Nicotine dependence Asthma Short term memory loss Myocarditis PLAN: Continue metoprolol 25 mg twice a day. Recommend treatment of myocarditis with metoprolol for 3 months. Likely repeat ECHO in office in 3 months. Further recommendations pending patient course Nurse practitioner note has been reviewed by physician. Signing provider agrees with the documented findings, assessment, and plan of care documented by LODGE ATTENDANT as a scribe. Objective - Vital Signs Vital signs: Vital Signs Temp 97.8 F 01/18/24 12:25 Pulse 91 01/18/24 12:25 Resp 18 01/18/24 12:25 BP 117/80 01/18/24 12:25 Pulse Ox 98 01/18/24 12:25 FiO2 Intake & Output 01/17/24 01/18/24 01/18/24 18:59 06:59 18:59 Intake Total 145.453 400 Balance 145.453 400 Weight 96.615 kg 92.8 kg Intake: IV 70 Intake, IV Titration 75.453 Amount Heparin Sod,Pork in 0.45% 75.453 NaCl 25,000 unit In 0.45 % NaCl 1 250ml.bag @ 10. 35 UNITS/KG/HR 10 mls/hr IV .Q24H [facility] Rx#: [id number] Oral 400 Other: Voiding Method Toilet # Voids 1 1 - Labs CBC & Chem 7: 01/18/24 06:45 01/18/24 06:45 Labs: Abnormal Lab Results - Last 24 Hours (Table) 01/17/24 01/17/24 01/18/24 Range/Units 14:27 14:27 06:45 WBC 15.5 H (3.8-10.6) k/uL RBC 4.10 L (4.30-5.90) m/uL Hct 38.4 L (39.0-53.0) % Plt Count 69 L (150-450) k/uL Total Bilirubin (0.2-1.3) mg/dL Alkaline Phosphatase (38-126) U/L Triglycerides 225.00 H (0.00-149.00) mg/dL VLDL Cholesterol, Calc 45.00 H (5.00-40.00) mg/dL HDL Cholesterol 25.00 L (40.00-60.00) mg/dL EBV Capsid Ag IgG Intrp Positive A (Negative) EBV Nuc Ag IgG Interp Positive A (Negative) 01/18/24 Range/Units 06:45 WBC (3.8-10.6) k/uL RBC (4.30-5.90) m/uL Hct (39.0-53.0) % Plt Count (150-450) k/uL Total Bilirubin 1.9 H (0.2-1.3) mg/dL Alkaline Phosphatase 138 H (38-126) U/L Triglycerides (0.00-149.00) mg/dL VLDL Cholesterol, Calc (5.00-40.00) mg/dL HDL Cholesterol (40.00-60.00) mg/dL EBV Capsid Ag IgG Intrp (Negative) EBV Nuc Ag IgG Interp (Negative)
[2024-01-18 15:15] LABS: VBG PH 7.41 (7.31-7.41)
--- NOTE | 2024-01-18 15:36 | CT ---
EXAMINATION TYPE: CODE STROKE: CTA head neck CT DLP: 570 mGycm, Automated exposure control for dose reduction was used. DATE OF EXAM: 01/18/2024 3:21 PM COMPARISON: 01/18/2024. CLINICAL INDICATION: Male, 28 years old with history of Carotid stenososis CVA; PHH, Carotid stenosos is CVA TECHNIQUE: Axially acquired helical CT angiogram of the head and neck was obtained with contrast. Axi al images are supplemented with 3D reconstructions and MIP images which were post-processed at an in dependent workstation. NASCET criteria used. Contrast used:65cc mL of Isovue 370 with IV Contrast, Oral contrast used: None. FINDINGS: CTA HEAD: No evidence of acute intracranial hemorrhage, mass effect, or midline shift. The ventricles, sulci, a nd cisterns are unremarkable. Vertebral arteries: The vertebral arteries are patent. Vertebral artery dominance: Codominant Basilar artery: The basilar artery is intact. The basilar artery bifurcation is normal. Internal Carotid arteries: The cervical, petrous, cavernous and supraclinoid segments are normal. CHARLINE: Patent with no evidence of aneurysm. ACOM: Present without evidence of aneurysm. MCA: Patent with no evidence of aneurysm. DEPARTMENTAL SHIPPING CLERK: origins bilaterally. PCOM: Hypoplastic bilaterally. Dural sinuses: Patent. CTA NECK: Right Carotid System: The common carotid artery and external carotid artery are patent. The carotid bifurcation demonstrate s no evidence of hemodynamically significant stenosis. The remaining portions of the internal carotid artery demonstrate normal size without significant narrowing. Left Carotid System: The common carotid artery and external carotid artery are patent. The carotid bifurcation demonstrate s no evidence of hemodynamically significant stenosis. The remaining portions of the internal carotid artery demonstrate normal size without significant narrowing. Vertebral arteries are patent without evidence hemodynamically significant stenosis. There is a three-vessel aortic arch. The origins of the great vessels are patent. No evidence of hemo dynamically significant stenosis. IMPRESSION: 1. No evidence of dissection of the cervical internal carotid arteries or vertebral arteries or any e vidence of significant stenosis at the carotid bifurcations. 2. No evidence of intracranial high-grade stenosis or intracranial aneurysm. [facility], Workstation: [id number], 01/18/2024 3:34 PM
[2024-01-18 16:30] LABS: T4, Free (Free Thyroxine) 1.09 ng/dL (0.78-2.19)
[2024-01-18] MEDS: methylPREDNISolone SOD SUCCIN 1,000 MG in SODIUM CHLORIDE 0.9% 250 ML IVPB SCH (17:00)
[2024-01-18] MEDS: CLOPIDOGREL 75 MG TAB PO SCH (17:02)
[2024-01-18 17:28] LABS: Appearance,Urine Clear (Clear); Bilirubin,Urine Negative (Negative); Blood,Urine Negative (Negative); Color,Urine Colorless; Glucose,Urine (UA) Negative (Negative); Ketones,Urine Negative (Negative); Leukocyte Esterase,Urine Negative (Negative); Nitrite,Urine Negative (Negative); Protein,Urine Negative (Negative); Specific Gravity,Urine 1.039 (1.001-1.035)
--- NOTE | 2024-01-18 18:30 | P.PN ---
Subjective Progress Note Date: 01/18/24 Hospital course: Patient is a very pleasant 28-year-old male with a past medical of asthma. He presented to the emergency department on 01/16/2024 with a chief complaint of chest pain and shortness of breath. Patient reports recent upper respiratory infection beginning 01/12/2024 and lasting for a few days prior to mostly resolving. He reports since resolution of this cold/infection he has been experiencing intermittent chest tightness and pain accompanied by shortness of breath worse with any exertion. Upon arrival to our facility patient underwent evaluation in the emergency department. Vital signs upon arrival show blood pressure 130/80, heart rate 100, respiratory rate 18, temp 98.6 F, and SpO2 of 90% on room air. EKG was completed showing normal sinus rhythm at 80 bpm with no noted T wave or ST abnormality showing no signs of acute ischemia upon personal review and interpretation. Chest x-ray negative for acute cardiopulmonary process. Labs completed and reviewed. CBC showing leukocytosis with WBC count of 13.2 and thrombocytopenia with platelet count of 109. BMP unremarkable. Blood glucose 101. Magnesium 2.0. Liver profile showing elevated total bili of 1.8 and alkaline phosphatase elevated at 157. Troponin was elevated at 2.110 and D-dimer also elevated at 4.19. CTA chest was completed negative for acute cardiopulmonary process but did reveal splenomegaly and hepatomegaly. Patient was started on low intensity heparin infusion for treatment of NSTEMI and admitted under our services with consultation to cardio logy. Bilateral lower extremity Dopplers were completed negative for DVT. Troponins trended resulting at 2.110, 2.670, and 2.560. Patient was evaluated by cardiology and taken for stress test. Stress test revealing nonischemic EKG response to Lexiscan infusion and Mercedes scan reporting reversible decreased perfusion involving the cardiac apex, anterior wall, and lateral wall. Echocardiogram completed showing a preserved EF of 55 to 60% with no significant valvular or structural abnormalities reported. Patient underwent cardiac catheterization reporting normal coronary arteries with high sided left filling pressures. Physical exam: Patient seen and fully evaluated at bedside this morning. He reports eagerly awaiting to go home. He currently denies having any chest pain or discomfort, shortness of breath, or any other complaints at this time. Vital signs reviewed and stable. General: Nontoxic, no distress and appears stated age. Derm: Skin warm and dry, normal coloration for ethnicity. Head: Atraumatic, normocephalic and symmetric. Eyes: EOM's intact, no lid lag, and anicteric sclera Mouth: no lip lesions, mucus membranes moist Cardiovascular: regular rate and rhythm with normal S1S2, no murmur, positive posterior tibial pulses bilaterally, and cap refill < 2 seconds. Lungs: Respirations even, regular, and unlabored on room air. Lungs CTA bilaterally, no rhonchi, no rales, no wheezing, and no accessory muscle usage. Abdominal: soft, nontender to palpation, no guarding, no appreciable organomegaly Ext: ROM intact. No gross muscle atrophy, no edema, no contractures Neuro: Speech clear, face symmetrical and CN II-XII grossly intact with no noted focal neuro deficits Psych: Alert and oriented to person, place, time, and situation. Appropriate and pleasant affect. Assessment and Plan of Care: NSTEMI -Cardiology following, took patient for cardiac cath which reported normal coronary arteries with high sided left filling pressures. -Bilateral lower extremity Dopplers were completed negative for DVT. -Troponins trended resulting at 2.110, 2.670, and 2.560. -Stress test revealing nonischemic EKG response to Lexiscan infusion and Mercedes scan reporting reversible decreased perfusion involving the cardiac apex, anterior wall, and lateral wall. -Echocardiogram completed showing a preserved EF of 55 to 60% with no significant valvular or structural abnormalities reported. -Patient to remain on continuous telemetry monitoring. -Continue aspirin 81 mg daily, metoprolol 25 mg twice daily and atorvastatin 40 mg nightly -Lipid profile showing elevated triglycerides of 225 and VLDL of 45.00 with a low HDL of 25.00.. Incidental findings of hepatomegaly and splenomegaly Elevated liver enzymes Thrombocytopenia, worsening Eosinophilia Recent viral infection -Patient denies any drug use and reports only occasional and rare alcohol use, denies binge drinking behaviors, or any history of IVDA. -Influenza A, influenza B, COVID, and RSV were negative. -EBV panel showing IgG positive but IgM negative. -Consult placed to hematology. Nicotine dependence -Recommend smoking cessation, order placed for nicotine patch 21 mg daily. Data and imaging reviewed: -Reviewed cardiac catheterization operative report, showing normal coronary arteries with high sided left filling pressures. -Morning labs reviewed. CBC showing worsening leukocytosis with WBC count of 15.5 and worsening thrombocytopenia with platelet count of 69 and eosinophils of 5.66.. BMP unremarkable. Blood glucose 94. Liver profile showing elevated total bili of 1.9 and alkaline phosphatase of 138. Magnesium 1.9. -Vital signs reviewed. Blood pressure 145/83, heart rate 73, respiratory rate 18, temp 97.8 F, and SpO2 of 97% on room air. CODE STATUS: Full code DVT prophylaxis: Heparin Discussed with: Patient, RN, patient's mother, and cardiology MOBILE DESIGNER Anticipated discharge date: Pending clinical course Anticipated discharge place: Home Patient was seen independently by Nurse Pracitioner. This document was prepared using [employer] dictation software. Please allow for errors in applied science and technologies dean, while rare they do occur. I saw and evaluated the patient independently today. I reviewed the do cumentation as provided by the KATLYN above, who is the original author of this note. I agree with the documented assessment and plan, with the following notes: Conglomeration of patient's symptoms including myocarditis, MRI findings of bilateral ischemic stroke, CT findings of hepatosplenomegaly, CBC findings of peripheral eosinophilia with absolute count of greater than 5, history of bronchial asthma, and malar rash on physical exam, consideration of EGPA as the etiology for patient's illness was given, and discussed with hematology, cardiology. Other considerations include lupus, antiphospholipid syndrome, eosinophilic myocarditis, and others; cardioembolic stroke is still a possibility, and patient may warrant a CAROL. Patient will be initiated on pulse dose steroids for 3 days, pending diagnostic testing including: ANCA, IgE level, EDUARDO, complements, ESR/CRP, we will also test for viral etiology such as HSV, CMV, parvovirus; bacterial ideology such as syphilis. Objective - Vital Signs Vital signs: Vital Signs Temp 98.9 F 01/17/24 20:32 Pulse 84 01/18/24 04:23 Resp 18 01/18/24 04:23 BP 115/72 01/18/24 04:23 Pulse Ox 98 01/18/24 04:23 FiO2 Intake & Output 01/17/24 01/18/24 01/18/24 18:59 06:59 18:59 Intake Total 145.453 400 Balance 145.453 400 Weight 96.615 kg 92.8 kg Intake: IV 70 Intake, IV Titration 75.453 Amount Heparin Sod,Pork in 0.45% 75.453 NaCl 25,000 unit In 0.45 % NaCl 1 250ml.bag @ 10. 35 UNITS/KG/HR 10 mls/hr IV .Q24H [facility] Rx#: [id number] Oral 400 Other: Voiding Method Toilet # Voids 1 1 - Labs CBC & Chem 7: 01/18/24 06:45 01/18/24 06:45 Labs: Abnormal Lab Results - Last 24 Hours (Table) 01/17/24 01/17/24 01/18/24 Range/Units 14:27 14:27 06:45 WBC 15.5 H (3.8-10.6) k/uL RBC 4.10 L (4.30-5.90) m/uL Hct 38.4 L (39.0-53.0) % Plt Count 69 L (150-450) k/uL Total Bilirubin (0.2-1.3) mg/dL Alkaline Phosphatase (38-126) U/L Triglycerides 225.00 H (0.00-149.00) mg/dL VLDL Cholesterol, Calc 45.00 H (5.00-40.00) mg/dL HDL Cholesterol 25.00 L (40.00-60.00) mg/dL EBV Capsid Ag IgG Intrp Positive A (Negative) EBV Nuc Ag IgG Interp Positive A (Negative) 01/18/24 Range/Units 06:45 WBC (3.8-10.6) k/uL RBC (4.30-5.90) m/uL Hct (39.0-53.0) % Plt Count (150-450) k/uL Total Bilirubin 1.9 H (0.2-1.3) mg/dL Alkaline Phosphatase 138 H (38-126) U/L Triglycerides (0.00-149.00) mg/dL VLDL Cholesterol, Calc (5.00-40.00) mg/dL HDL Cholesterol (40.00-60.00) mg/dL EBV Capsid Ag IgG Intrp (Negative) EBV Nuc Ag IgG Interp (Negative)
--- NOTE | 2024-01-18 18:33 | P.PN ---
Progress Note - Text Progress Note Date: 01/18/24 Received notification from RN at 12:35 PM patient with new onset memory loss. Arrived on Scene to find: Patient resting in bed alert to person, place, and time but significantly confused to situation. Patient just returned from shower but does not remember taking a shower. He was unable to recall why he is in the hospital or complaints that brought him into the hospital. He had no other noted neurological deficits. Pupils were equal round and reactive to light and accommodation. EOMs intact. A code stroke was called. Initial NIH was 1. Telemetry monitoring showing no changes, patient remaining in normal sinus rhythm. Point of care glucose 99. Patient's at bedside reports sudden onset of this memory loss/confusion. Physical exam: Vital signs at time of assessment were unremarkable with blood pressure 117/80, heart rate 91, respiratory rate 18, temp 97.8 F, and SpO2 of 98% on room air. General: Nontoxic, no distress and appears stated age. Derm: Skin warm and dry, normal coloration for ethnicity. Small reddened bumpy rash on bilateral cheeks. Head: Atraumatic, normocephalic and symmetric. Eyes: EOM's intact, no lid lag, and anicteric sclera Mouth: no lip lesions, mucus membranes moist Cardiovascular: regular rate and rhythm with normal S1S2, no murmur, positive posterior tibial pulses bilaterally, and cap refill < 2 seconds. Lungs: Respirations even, regular, and unlabored on room air. Lungs CTA bilaterally, no rhonchi, no rales, no wheezing, and no accessory muscle usage. Abdominal: soft, nontender to palpation, no guarding, no appreciable organomegaly Ext: ROM and sensation of bilateral upper and lower extremities equal and intact. No gross muscle atrophy, no edema, no contractures Neuro: Speech clear, face symmetrical and CN II-XII grossly intact. GCS 14. Negative arm drop. Normal [id number]. Psych: Patient alert to person, place, and time but confused to situation with moderate short-term memory loss noted.. Assessment and plan: Acute metabolic encephalopathy, rule out CVA vs vasculitis vs other -Order placed for stat CT brain, unable to do CTA head and neck secondary to cardiac cath yesterday evening. -Neurointerventionalist, Dr. Palacio was notified. Reviewed CT recommending stat MRI brain without contrast. -Orders placed for TSH with reflex free T4, ammonia level, VBG, lupus anticoagulant cardiolipin IgG, IgA, and IgM -MRI brain was completed showing acute diffuse ischemic changes within bilateral centrum semimobile and periventricular white matter with some cerebellar acute ischemic changes present suggestive of showering emboli. -Discussed symptoms and findings with neurologist, patient transportation driver, and sample wrapper in great detail. MRI findings and overall picture concerning for vasculitis. Patient started on high-dose steroids with Solu-Medrol 1000 mg daily. A Total of greater than 60 minutes of critical care time was spent on the co mplex care of this patient. I reviewed the documentation as provided by the KATLYN above, who is the original author of this note. I agree with the documented assessment and plan, with the following changes: none
[2024-01-18] MEDS ORDERED: levETIRAcetam IV 500 MG/5 ML VIAL IVP STA (19:46)
[2024-01-18] MEDS ORDERED: MELATONIN 3 MG TABLET PO PRN (19:54)
[2024-01-18] MEDS: levETIRAcetam IV 500 MG/5 ML VIAL IVP STA (20:00)
[2024-01-18 22:28] LABS: Glucose,Whole Blood 121 mg/dL (70-110)
--- NOTE | 2024-01-19 06:59 | P.PN ---
Progress Note - Text Progress Note Date: 01/19/24 Overnight, the case was discussed with neurointensivist on-call as well as neurology on-call regarding the patient's gradually worsening mental status and increasing jerking movements. The case was subsequently presented for transfer for rheumatological evaluation at [facility] where the patient was accepted by Dr. Teague. Currently awaiting bed placement. The leading differential for the etiology regarding the patient's shower emboli is cholesterol embolization syndrome secondary to cardiac catheterization. Further testing is pending. The patient was seen at the bedside multiple times overnight.
[2024-01-19 07:33] LABS: Basophils % (A) 0 %; Eosinophils # (A) 0.8 k/uL (0-0.7); Eosinophils % (A) 8 %; HCT 40.5 % (39.0-53.0); HGB 14.2 gm/dL (13.0-17.5); Lymphocytes # (A) 1.3 k/uL (1.0-4.8); Lymphocytes % (A) 13 %; MCH 32.5 pg (25.0-35.0); MCHC 35.1 g/dL (31.0-37.0); MCV 92.7 fL (80.0-100.0); Mean Platelet Volume 10.8; Monocytes # (A) 0.6 k/uL (0-1.0); Monocytes % (A) 6 %; Neutrophils # (A) 7.4 k/uL (1.3-7.7); Neutrophils % (A) 73 %; RBC 4.37 m/uL (4.30-5.90); RDW 15.2 % (11.5-15.5); WBC 10.2 k/uL (3.8-10.6)
[2024-01-19 07:37] LABS: Platelet Count 83 k/uL (150-450)
[2024-01-19 07:40] LABS: ALT 26 U/L (4-49); AST 44 U/L (17-59); African American GFR (CKD) >90 (>60 ml/min/1.73 sqM); Albumin 4.2 g/dL (3.5-5.0); Alkaline Phosphatase 155 U/L (38-126); Anion Gap 9 mmol/L; Blood Urea Nitrogen 16 mg/dL (9-20); Calcium 9.6 mg/dL (8.4-10.2); Carbon Dioxide 25 mmol/L (22-30); Chloride 104 mmol/L (98-107); Glucose 126 mg/dL (74-99); Magnesium 2.1 mg/dL (1.6-2.3); Non-African American GFR(CKD) >90 (>60 ml/min/1.73 sqM); Potassium 4.5 mmol/L (3.5-5.1); Sodium 138 mmol/L (137-145); Total Bilirubin 1.9 mg/dL (0.2-1.3); Total Protein 7.2 g/dL (6.3-8.2)
[2024-01-19] MEDS: levETIRAcetam IV 500 MG/5 ML VIAL IVP SCH (08:49)
--- NOTE | 2024-01-19 10:07 | P.PN ---
Subjective Progress Note Date: 01/19/24 Hospital course: Patient is a very pleasant 28-year-old male with a past medical of asthma. He presented to the emergency department on 01/16/2024 with a chief complaint of chest pain and shortness of breath. Patient reports recent upper respiratory infection beginning 01/12/2024 and lasting for a few days prior to mostly resolving. He reports since resolution of this cold/infection he has been experiencing intermittent chest tightness and pain accompanied by shortness of breath worse with any exertion. Upon arrival to our facility patient underwent evaluation in the emergency department. Vital signs upon arrival show blood pressure 130/80, heart rate 100, respiratory rate 18, temp 98.6 F, and SpO2 of 90% on room air. EKG was completed showing normal sinus rhythm at 80 bpm with no noted T wave or ST abnormality showing no signs of acute ischemia upon personal review and interpretation. Chest x-ray negative for acute cardiopulmonary process. Labs completed and reviewed. CBC showing leukocytosis with WBC count of 13.2 and thrombocytopenia with platelet count of 109. BMP unremarkable. Blood glucose 101. Magnesium 2.0. Liver profile showing elevated total bili of 1.8 and alkaline phosphatase elevated at 157. Troponin was elevated at 2.110 and D-dimer also elevated at 4.19. CTA chest was completed negative for acute cardiopulmonary process but did reveal splenomegaly and hepatomegaly. Patient was started on low intensity heparin infusion for treatment of NSTEMI and admitted under our services with consultation to cardio logy. Bilateral lower extremity Dopplers were completed negative for DVT. Troponins trended resulting at 2.110, 2.670, and 2.560. Patient was evaluated by cardiology and taken for stress test. Stress test revealing nonischemic EKG response to Lexiscan infusion and Mercedes scan reporting reversible decreased perfusion involving the cardiac apex, anterior wall, and lateral wall. Echocardiogram completed showing a preserved EF of 55 to 60% with no significant valvular or structural abnormalities reported. Patient underwent cardiac catheterization reporting normal coronary arteries with high sided left filling pressures. -Stress test revealing nonischemic EKG response to Lexiscan infusion and Mercedes scan reporting reversible decreased perfusion involving the cardiac apex, anterior wall, and lateral wall. -Echocardiogram completed showing a preserved EF of 55 to 60% with no significant valvular or structural abnormalities reported. -Cardiology following, took patient for cardiac cath which reported normal coronary arteries with high sided left filling pressures. -Lipid profile showing elevated triglycerides of 225 and VLDL of 45.00 with a low HDL of 25.00.. Physical exam: Patient seen and fully evaluated at bedside this morning. He reports eagerly awaiting to go home. He currently denies having any chest pain or discomfort, shortness of breath, or any other complaints at this time. Vital signs reviewed and stable. General: Nontoxic, no distress and appears stated age. Derm: Skin warm and dry, normal coloration for ethnicity. Head: Atraumatic, normocephalic and symmetric. Eyes: EOM's intact, no lid lag, and anicteric sclera Mouth: no lip lesions, mucus membranes moist Cardiovascular: regular rate and rhythm with normal S1S2, no murmur, positive posterior tibial pulses bilaterally, and cap refill < 2 seconds. Lungs: Respirations even, regular, and unlabored on room air. Lungs CTA bilaterally, no rhonchi, no rales, no wheezing, and no accessory muscle usage. Abdominal: soft, nontender to palpation, no guarding, no appreciable organomegaly Ext: ROM intact. No gross muscle atrophy, no edema, no contractures Neuro: Speech clear, face symmetrical and CN II-XII grossly intact with no noted focal neuro deficits Psych: Alert and oriented to person, place, time, and situation. Appropriate and pleasant affect. 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 -Patient to remain on continuous telemetry monitoring. -Continue aspirin 81 mg daily, metoprolol 25 mg twice daily and atorvastatin 40 mg nightly -ESR/CRP are elevated, C3/C4 are normal, eosinophilia improving with pulse dose steroids, IV solumedrol day 2 of 3 of 1000mg daily -pending transfer to [facility] with Dr. Teague as accepting physician due to concern for vasculitic/rheumatologic process with possible need for cytoxan -Pending inflammatory/vasculitic workup: EDUARDO, ANCA, IgE, Cardiolipin Ig A/G/M, [id number], [place] [id number] G/A, Factor V Leiden -hematology consult is appreciated -Pending infectious workup: Lyme Ab, CMV IgG/IgM, HSV 1/2 PCR, Legionella Urine Ag, Parvovirus B-19 IgG/M, Syphilis -DDx: EGPA, hypereosinophilic syndrome, anti-phospholipid syndrome, cholesterol emboli Nicotine dependence -Recommend smoking cessation, order placed for nicotine patch 21 mg daily. CODE STATUS: Full code DVT prophylaxis: SCDs Discussed with: Patient, RN, patient's mother, and patient's Anticipated discharge date: Pending transfer Anticipated discharge place: [facility] This document was prepared using [employer]ub[employer] dictation software. Please allow for errors in transcription typist, while rare they do occur. Objective - Vital Signs Vital signs: Vital Signs Temp 97.9 F 01/19/24 08:00 Pulse 77 01/19/24 09:00 Resp 12 01/19/24 09:00 BP 119/66 01/19/24 09:00 Pulse Ox 95 01/19/24 09:00 FiO2 40 01/19/24 04:00 Intake & Output 01/18/24 01/19/24 01/19/24 18:59 06:59 18:59 Intake Total 0 118 Output Total 300 225 Balance -300 -107 Weight 98.6 kg Intake: Oral 0 118 Output: Urine 300 225 Other: Voiding Method Toilet Urinal # Voids 2 1 - Labs CBC & Chem 7: 01/19/24 06:57 01/19/24 06:57 Labs: Abnormal Lab Results - Last 24 Hours (Table) 01/18/24 01/18/24 01/18/24 Range/Units 06:45 06:45 14:30 Plt Count (150-450) k/uL Eosinophils # (0-0.7) k/uL ESR 39 H (0-15) mm/Hr VBG HCO3 (24-28) mmol/L Glucose (74-99) mg/dL POC Glucose (mg/dL) (70-110) mg/dL Total Bilirubin (0.2-1.3) mg/dL Alkaline Phosphatase (38-126) U/L Troponin I (0.000-0.034) ng/mL C-Reactive Protein 4.9 H (<1.0) mg/dL Vitamin B12 (200.0-944.0) pg/mL Folate (4.40-31.00) ng/mL TSH 7.030 H (0.465-4.680) mIU/L Ur Specific [place] (1.001-1.035) 01/18/24 01/18/24 01/18/24 Range/Units 14:30 14:30 16:00 Plt Count (150-450) k/uL Eosinophils # (0-0.7) k/uL ESR (0-15) mm/Hr VBG HCO3 29 H (24-28) mmol/L Glucose (74-99) mg/dL POC Glucose (mg/dL) (70-110) mg/dL Total Bilirubin (0.2-1.3) mg/dL Alkaline Phosphatase (38-126) U/L Troponin I 2.410 H* (0.000-0.034) ng/mL C-Reactive Protein (<1.0) mg/dL Vitamin B12 (200.0-944.0) pg/mL Folate (4.40-31.00) ng/mL TSH (0.465-4.680) mIU/L Ur Specific [place] 1.039 H (1.001-1.035) 01/18/24 01/18/24 01/18/24 Range/Units 16:06 16:06 18:14 Plt Count (150-450) k/uL Eosinophils # (0-0.7) k/uL ESR (0-15) mm/Hr VBG HCO3 (24-28) mmol/L Glucose (74-99) mg/dL POC Glucose (mg/dL) (70-110) mg/dL Total Bilirubin (0.2-1.3) mg/dL Alkaline Phosphatase (38-126) U/L Troponin I 2.650 H* (0.000-0.034) ng/mL C-Reactive Protein (<1.0) mg/dL Vitamin B12 >3600.0 H (200.0-944.0) pg/mL Folate 2.50 L (4.40-31.00) ng/mL TSH (0.465-4.680) mIU/L Ur Specific [place] (1.001-1.035) 01/18/24 01/19/24 01/19/24 Range/Units 22:26 06:57 06:57 Plt Count 83 L (150-450) k/uL Eosinophils # 0.8 H (0-0.7) k/uL ESR (0-15) mm/Hr VBG HCO3 (24-28) mmol/L Glucose 126 H (74-99) mg/dL POC Glucose (mg/dL) 121 H (70-110) mg/dL Total Bilirubin 1.9 H (0.2-1.3) mg/dL Alkaline Phosphatase 155 H (38-126) U/L Troponin I (0.000-0.034) ng/mL C-Reactive Protein (<1.0) mg/dL Vitamin B12 (200.0-944.0) pg/mL Folate (4.40-31.00) ng/mL TSH (0.465-4.680) mIU/L Ur Specific [place] (1.001-1.035)
--- NOTE | 2024-01-19 11:19 | P.PN ---
Subjective Progress Note Date: 01/19/24 HISTORY OF PRESENT ILLNESS: This is a 28-year-old male with a past medical history significant for asthma and nicotine dependence. 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 We have been asked to see the patient in consultation for elevated troponins. Patient examined at the bedside in the emergency room. Patient states he has been having cold symptoms since Saturday. Patient reports having fever, chills, and a productive cough. He states that he got on Saturday and was around a lot of people at his wedding and reports one of his family members was sick. Patient states yesterday morning he began to have chest discomfort. He states it felt like a sharp shooting pain in the middle of his chest. He states the pain has been intermittent for the past 24 hours. He states he did not take any medication to help with the pain. At the time of examination, he denies any chest pain or pressure. He is a current cigarette smoker and smokes half a pack per day. He reports occasional alcohol use. Denies any drug use including marijuana. He states that his mom has a history of an irregular heart rhythm but denies any family history of premature coronary artery disease. DIAGNOSTICS: - EKG reveals sinus mechanism with no signs of acute ischemia - Chest xray negative for acute process - Laboratory data: WBC 14.5. Hemoglobin 14.5. Platelet count 93. D-dimer 4.19. Sodium 137. Potassium 4.1. BUN 13. Creatinine 1.0. Troponin 2.110. 2.670. 2.560. - Chest CTA: Negative for pulmonary embolism. Splenomegaly and hepatomegaly. - Venous Doppler: Negative for DVT of bilateral lower extremities - Current home cardiac medications include none - [facility] 01/17/24 revealed normal coronary arteries - ECHO with EF 55-60%, no significant valve issues 01/18/2024 Patient had sudden onset of short-term memory loss and code stroke was called. He was apparently up taking shower when he did not know why he was in the hospital. No chest pain or pressure. No shortness of breath. No headache, numbness or weakness. Coordination intact. Addendum entered and electronically signed by Josiah Morris DO 01/18/24 15:17: patient's MRI concerning for multifocal ischemic event. Symptoms started at approximately 1150 this morning and unnlikely related to recent catheterization. Possibility of embolic etiology to his coronaries as well as to his brain. Discussed with internal medicine with concern of possible vasculitis or autoimmune process. Additionally possible hypercoagulable state. Patient additionally having thrombocytopenia and rule out heparin-induced thrombocytopenia. Additionally having chest pain which started approximately 2:30. Await CTA to rule out any dissection or other vascular lesions. If unrevealing consider CAROL to rule out cardiac source of emboli. Check repeat EKG and troponins given new episode of chest pain over the last 30 minutes. Further recommendations to follow. 01/18 Patient is seen and examined in the intensive care unit. As above, patient had MRI concerning for multifocal ischemic event. Patient also had shaking episode yesterday thought to be a seizure activity. Patient was started on Keppra and followed by neurology. Patient is waiting transfer to [facility] for rheumatology workup rule out autoimmune, vasculitis. PHYSICAL EXAM: VITAL SIGNS: Reviewed. GENERAL: Well-developed in no acute distress. HEENT: Head is normocephalic. Pupils are equal, round. Sclerae anicteric. Mucous membranes of the mouth are moist. Neck supple. No JVD or thyromegaly LUNGS: Respirations even and unlabored. Lungs essentially clear to auscultation bilaterally. HEART: Regular rate and rhythm. S1 and S2 heard. ABDOMEN: Soft. Nondistended. Nontender. EXTREMITIES: Normal range of motion. No clubbing or cyanosis. Peripheral pulses intact. No lower extremity edema. Right radial site with no redness or swelling. NEUROLOGIC: Awake and alert. Oriented x 3. ASSESSMENT: Recent upper respiratory infection Elevated troponins, NSTEMI; suspected myocarditis Leukocytosis Thrombocytopenia Elevated D-dimer, CTA negative for pulmonary embolism Nicotine dependence Asthma Short term memory loss Myocarditis Bilateral ischemic stroke Possible seizure activity PLAN: Continue current cardiac medications: Aspirin 81 mg daily, atorvastatin 40 mg at bedtime, Plavix 75 mg daily ordered by neurology, metoprolol 25 mg twice a day. Patient to be transferred to [facility] once arrangements completed. Nurse practitioner note has been reviewed by physician. Signing provider agrees with the documented findings, assessment, and plan of care documented by STRIP DEBURRER as a scribe. Objective - Vital Signs Vital signs: Vital Signs Temp 97.9 F 01/19/24 08:00 Pulse 75 01/19/24 08:00 Resp 20 01/19/24 08:00 BP 106/78 01/19/24 08:00 Pulse Ox 92 L 01/19/24 08:00 FiO2 40 01/19/24 04:00 Intake & Output 01/18/24 01/19/24 01/19/24 18:59 06:59 18:59 Intake Total 0 Output Total 300 225 Balance -300 -225 Weight 98.6 kg Intake: Oral 0 Output: Urine 300 225 Other: Voiding Method Toilet Urinal # Voids 2 1 - Labs CBC & Chem 7: 01/19/24 06:57 01/19/24 06:57 Labs: Abnormal Lab Results - Last 24 Hours (Table) 01/18/24 01/18/24 01/18/24 Range/Units 06:45 06:45 14:30 Plt Count (150-450) k/uL Eosinophils # (0-0.7) k/uL ESR 39 H (0-15) mm/Hr VBG HCO3 (24-28) mmol/L Glucose (74-99) mg/dL POC Glucose (mg/dL) (70-110) mg/dL Total Bilirubin (0.2-1.3) mg/dL Alkaline Phosphatase (38-126) U/L Troponin I (0.000-0.034) ng/mL C-Reactive Protein 4.9 H (<1.0) mg/dL Vitamin B12 (200.0-944.0) pg/mL Folate (4.40-31.00) ng/mL TSH 7.030 H (0.465-4.680) mIU/L Ur Specific [place] (1.001-1.035) 01/18/24 01/18/24 01/18/24 Range/Units 14:30 14:30 16:00 Plt Count (150-450) k/uL Eosinophils # (0-0.7) k/uL ESR (0-15) mm/Hr VBG HCO3 29 H (24-28) mmol/L Glucose (74-99) mg/dL POC Glucose (mg/dL) (70-110) mg/dL Total Bilirubin (0.2-1.3) mg/dL Alkaline Phosphatase (38-126) U/L Troponin I 2.410 H* (0.000-0.034) ng/mL C-Reactive Protein (<1.0) mg/dL Vitamin B12 (200.0-944.0) pg/mL Folate (4.40-31.00) ng/mL TSH (0.465-4.680) mIU/L Ur Specific [place] 1.039 H (1.001-1.035) 01/18/24 01/18/24 01/18/24 Range/Units 16:06 16:06 18:14 Plt Count (150-450) k/uL Eosinophils # (0-0.7) k/uL ESR (0-15) mm/Hr VBG HCO3 (24-28) mmol/L Glucose (74-99) mg/dL POC Glucose (mg/dL) (70-110) mg/dL Total Bilirubin (0.2-1.3) mg/dL Alkaline Phosphatase (38-126) U/L Troponin I 2.650 H* (0.000-0.034) ng/mL C-Reactive Protein (<1.0) mg/dL Vitamin B12 >3600.0 H (200.0-944.0) pg/mL Folate 2.50 L (4.40-31.00) ng/mL TSH (0.465-4.680) mIU/L Ur Specific [place] (1.001-1.035) 01/18/24 01/19/24 01/19/24 Range/Units 22:26 06:57 06:57 Plt Count 83 L (150-450) k/uL Eosinophils # 0.8 H (0-0.7) k/uL ESR (0-15) mm/Hr VBG HCO3 (24-28) mmol/L Glucose 126 H (74-99) mg/dL POC Glucose (mg/dL) 121 H (70-110) mg/dL Total Bilirubin 1.9 H (0.2-1.3) mg/dL Alkaline Phosphatase 155 H (38-126) U/L Troponin I (0.000-0.034) ng/mL C-Reactive Protein (<1.0) mg/dL Vitamin B12 (200.0-944.0) pg/mL Folate (4.40-31.00) ng/mL TSH (0.465-4.680) mIU/L Ur Specific [place] (1.001-1.035)
[2024-01-19 13:01] LABS: Amphetamine Screen,Urine Not Detected (NotDetected); Barbiturate Screen,Urine Not Detected (NotDetected); Benzodiazepines Screen,Urine Not Detected (NotDetected); Cocaine Screen,Urine Not Detected (NotDetected); Methadone Screen, Urine Not Detected (NotDetected); Opiate Screen,Urine Not Detected (NotDetected); Oxycodone Screen, Urine Not Detected (NotDetected); Phencyclidine Screen,Urine Not Detected (NotDetected); Tricyclic Antidepressant,Urine Not Detected (NotDetected); Urn Cannabinoid Scrn Not Detected (NotDetected)
[2024-01-19] MEDS: LORazepam 2 MG/ML INJ IV PRN (13:41)
--- NOTE | 2024-01-19 13:54 | P.CNPUL ---
History of Present Illness Consult date: 01/19/24 Requesting physician: Janett Jung Reason for consult: other (ICU management) Chief complaint: URI symptoms/cold symptoms History of present illness: This is a 28-year-old white male with history of mild asthma, patient presented to the ER yesterday after he was seen in a walk-in clinic with symptoms of URI. Had mostly cold-like symptoms, with generalized weakness, fatigue, and chest dis comfort. Patient was seen in the ER, and he was noted to have elevated troponin level. Cardiology was consulted, and considering his elevated troponin cardiology felt that this is likely a myocarditis, he also had leukocytosis with thrombocytopenia. Had negative workup for pulmonary embolism, hence cardiac catheterization was recommended. This was done on 01/18/2024, patient was found to have normal coronary arteries, and he had high left-sided filling pressures. Echocardiogram on this patient admission was basically normal no evidence of valvular disease and no evidence of vegetations. With good LV function since the patient had cardiac catheterization, patient was noted to have new onset memory loss, with inflammatory markers including D-dimer, elevated troponin, and he was also noticing to have intermittent spasm with jerks of the left lower extremity. Neurology evaluated the patient, and recommended an MRI of the brain. This came back quite abnormal showing acute diffuse ischemic changes within bilateral centrum semiovale and periventricular matter, there was also evidence of some cerebellar acute ischemic changes highly suggestive of showering emboli. Patient had no previous history of thromboembolic disease, no history of IV drug abuse, no history of valvular heart disease, and again his echocardiogram on this presentation showed no evidence of any mural thrombi and no evidence of any vegetations on the valves. I was notified about this patient last night and about all these new findings on the MRI of the brain, and I recommended dressing the patient to the ICU in the meantime patient is being considered for transfer to [facility]. There was no evidence of acute kidney injury there is no evidence of livedo reticularis however the patient does have peripheral eosinophilia ESR is slightly elevated 39, C-reactive protein is also slightly elevated, further inflammatory vasculitic workup is pending including EDUARDO, ANCA, cardiolipin antibodies, beta-2 glycoprotein, factor V Leyden, Lyme disease titer is pending, VDRL is pending, however the possi bility of cholesterol embolic syndrome is very likely considering the presentation and the events since he had a cardiac catheterization although he did present with symptoms of URI initially to begin with Review of Systems CONSTITUTIONAL: Generalized weakness, no fever no chills HEENT: No headache no blurred vision no dizziness CARDIOVASCULAR: No chest pain orthopnea PND or palpitations RESPIRATORY: As noted in HPI, his initial presentation was the presentation of URI symptoms and chest tightness. GASTROINTESTINAL: Denies nausea vomiting abdominal pain melena or hematemesis HEMATOLOGIC: Denies clotting bleeding or bruising GENITOURINARY: Negative SKIN: Denies any rashes Neurologic: As noted in HPI patient has amnesia, loss of memory, he has left lower extremity spastic episodes, and involuntary movements/intermittent jerks of the left lower extremity, unintentional Past Medical History Past Medical History: Asthma Additional Past Medical History / Comment(s): kidney stones. History of Any Multi-Drug Resistant Organisms: None Reported Past Surgical History: Back Surgery Additional Past Surgical History / Comment(s): ear tubes Past Anesthesia/Blood Transfusion Reactions: No Reported Reaction Past Psychological History: No Psychological Hx Reported Smoking Status: Current every day smoker Past Alcohol Use History: Occasional Past Drug Use History: None Reported - Past Family History Mother Family Medical History: Diabetes Mellitus Medications and Allergies Home Medications Medication Instructions Recorded Confirmed Type Albuterol Nebulized [Ventolin 2.5 mg INHALATION RT-TID PRN 01/16/24 01/16/24 History Nebulized] Albuterol Sulfate [Albuterol 2 puff INHALATION RT-Q6H PRN 01/16/24 01/16/24 History Sulfate Hfa] Fexofenadine HCl [Maura Allergy] 180 mg PO HS 01/16/24 01/16/24 History Fluticasone Nasal [place] [Flonase 1 spray EA NOSTRIL HS 01/16/24 01/16/24 History Nasal [place]] Montelukast [Singulair] 10 mg PO HS 01/16/24 01/16/24 History Omeprazole 20 mg PO HS 01/16/24 01/16/24 History Allergies Allergy/AdvReac Type Severity Reaction Status Date / Time No Known Allergies Allergy Verified 04/10/23 15:11 Physical Exam Vitals: Vital Signs Temp Pulse Pulse Resp BP BP Pulse Ox 01/19/24 12:00 98.0 F 77 11 L 95/48 95 01/19/24 11:30 64 16 111/64 01/19/24 11:00 70 17 112/67 92 L 01/19/24 10:30 78 20 111/70 01/19/24 10:00 80 12 113/68 92 L 01/19/24 09:30 75 19 119/71 92 L 01/19/24 09:00 77 12 119/66 95 01/19/24 08:30 98 20 106/78 95 01/19/24 08:00 97.9 F 75 20 106/78 92 L 01/19/24 07:30 20 94 L 01/19/24 07:00 80 12 94/63 95 01/19/24 06:30 77 23 116/65 92 L 01/19/24 06:00 67 15 152/76 95 01/19/24 05:30 72 18 134/79 93 L 01/19/24 05:00 75 18 114/67 96 01/19/24 04:30 86 33 H 117/79 96 01/19/24 04:00 99.2 F 70 14 115/81 01/19/24 03:30 77 18 122/86 94 L 01/19/24 03:00 73 28 H 128/87 95 01/19/24 02:30 77 22 120/68 96 01/19/24 02:00 78 21 129/79 96 01/19/24 01:30 81 20 109/69 96 01/19/24 01:00 84 19 110/69 94 L 01/19/24 00:30 74 19 114/73 94 L 01/19/24 00:00 98.6 F 75 12 121/82 95 01/18/24 23:30 82 9 L 120/80 96 01/18/24 23:00 81 14 126/83 95 01/18/24 22:30 78 19 127/79 96 01/18/24 19:53 98.5 F 80 16 130/79 98 01/18/24 16:00 98.3 F 80 15 130/83 98 01/18/24 14:52 71 20 126/78 99 01/18/24 13:27 97.9 F 20 118/62 98 FiO2 01/19/24 12:00 01/19/24 11:30 01/19/24 11:00 01/19/24 10:30 01/19/24 10:00 01/19/24 09:30 01/19/24 09:00 01/19/24 08:30 01/19/24 08:00 01/19/24 07:30 01/19/24 07:00 01/19/24 06:30 01/19/24 06:00 01/19/24 05:30 01/19/24 05:00 01/19/24 04:30 01/19/24 04:00 40 01/19/24 03:30 01/19/24 03:00 01/19/24 02:30 01/19/24 02:00 01/19/24 01:30 01/19/24 01:00 01/19/24 00:30 01/19/24 00:00 01/18/24 23:30 01/18/24 23:00 01/18/24 22:30 01/18/24 19:53 01/18/24 16:00 01/18/24 14:52 01/18/24 13:27 Intake and Output 01/18/24 01/19/24 01/19/24 22:59 06:59 14:59 Intake Total 0 608 Output Total 300 225 Balance 0 -300 383 Intake: Oral 0 608 Output: Urine 300 225 Other: Voiding Method Urinal Urinal Urinal # Voids 2 1 Weight 98.6 kg General: Revealed 28-year-old white male in no distress Derm: no rashes, no evidence of livedo reticularis Head: Atraumatic, normocephalic Eyes: EOM's intact, no lid lag, and anicteric sclera Mouth: no lip lesions, moist mucous membranes Cardiovascular: Normal S1-S2, no S3 gallop, no murmur Lungs: Symmetrical chest expansion clear bilaterally no crackles rhonchi or wheezes Abdominal: Soft nontender no megaly no rebound no guarding Ext: No clubbing edema or cyanosis Neuro: Patient seems quite forgetful, could not remember the events since he has been in the hospital patient continues to have intermittent jerking and spasms of the left lower extremity with jerks. Psych: Normal mood, flat affect, normal mental status exam except for short-term memory seems to be lost Results - Laboratory Findings CBC and BMP: 01/19/24 06:57 01/19/24 06:57 PT/INR, D-dimer PT 11.7 sec (10.0-12.5) 01/17/24 02:58 INR 1.1 (<1.2) 01/17/24 02:58 D-Dimer 4.19 mg/L FEU (<0.60) H 01/16/24 18:37 Abnormal lab findings: Abnormal Labs 01/16/24 01/16/24 01/16/24 18:37 18:37 18:37 WBC 13.2 H RBC Hct Plt Count 109 L Eosinophils # 3.0 H Eosinophils # (Manual) ESR APTT D-Dimer VBG HCO3 Glucose 101 H POC Glucose (mg/dL) Total Bilirubin 1.8 H Alkaline Phosphatase 157 H Troponin I 2.110 H* C-Reactive Protein Triglycerides VLDL Cholesterol, Calc HDL Cholesterol Vitamin B12 Folate TSH Ur Specific [place] EBV Capsid Ag IgG Intrp EBV Nuc Ag IgG Interp 01/16/24 01/16/24 01/17/24 18:37 21:37 02:58 WBC RBC Hct Plt Count Eosinophils # Eosinophils # (Manual) ESR APTT 31.6 H D-Dimer 4.19 H VBG HCO3 Glucose POC Glucose (mg/dL) Total Bilirubin Alkaline Phosphatase Troponin I 2.670 H* C-Reactive Protein Triglycerides VLDL Cholesterol, Calc HDL Cholesterol Vitamin B12 Folate TSH Ur Specific [place] EBV Capsid Ag IgG Intrp EBV Nuc Ag IgG Interp 01/17/24 01/17/24 01/17/24 02:58 02:58 14:27 WBC 14.5 H RBC Hct Plt Count 93 L Eosinophils # Eosinophils # (Manual) 5.66 H ESR APTT D-Dimer VBG HCO3 Glucose POC Glucose (mg/dL) Total Bilirubin Alkaline Phosphatase Troponin I 2.560 H* C-Reactive Protein Triglycerides 225.00 H VLDL Cholesterol, Calc 45.00 H HDL Cholesterol 25.00 L Vitamin B12 Folate TSH Ur Specific [place] EBV Capsid Ag IgG Intrp EBV Nuc Ag IgG Interp 01/17/24 01/18/24 01/18/24 14:27 06:45 06:45 WBC 15.5 H RBC 4.10 L Hct 38.4 L Plt Count 69 L Eosinophils # Eosinophils # (Manual) ESR APTT D-Dimer VBG HCO3 Glucose POC Glucose (mg/dL) Total Bilirubin 1.9 H Alkaline Phosphatase 138 H Troponin I C-Reactive Protein Triglycerides VLDL Cholesterol, Calc HDL Cholesterol Vitamin B12 Folate TSH Ur Specific [place] EBV Capsid Ag IgG Intrp Positive A EBV Nuc Ag IgG Interp Positive A 01/18/24 01/18/24 01/18/24 06:45 06:45 14:30 WBC RBC Hct Plt Count Eosinophils # Eosinophils # (Manual) ESR 39 H APTT D-Dimer VBG HCO3 Glucose POC Glucose (mg/dL) Total Bilirubin Alkaline Phosphatase Troponin I C-Reactive Protein 4.9 H Triglycerides VLDL Cholesterol, Calc HDL Cholesterol Vitamin B12 Folate TSH 7.030 H Ur Specific [place] EBV Capsid Ag IgG Intrp EBV Nuc Ag IgG Interp 01/18/24 01/18/24 01/18/24 14:30 14:30 16:00 WBC RBC Hct Plt Count Eosinophils # Eosinophils # (Manual) ESR APTT D-Dimer VBG HCO3 29 H Glucose POC Glucose (mg/dL) Total Bilirubin Alkaline Phosphatase Troponin I 2.410 H* C-Reactive Protein Triglycerides VLDL Cholesterol, Calc HDL Cholesterol Vitamin B12 Folate TSH Ur Specific [place] 1.039 H EBV Capsid Ag IgG Intrp EBV Nuc Ag IgG Interp 01/18/24 01/18/24 01/18/24 16:06 16:06 18:14 WBC RBC Hct Plt Count Eosinophils # Eosinophils # (Manual) ESR APTT D-Dimer VBG HCO3 Glucose POC Glucose (mg/dL) Total Bilirubin Alkaline Phosphatase Troponin I 2.650 H* C-Reactive Protein Triglycerides VLDL Cholesterol, Calc HDL Cholesterol Vitamin B12 >3600.0 H Folate 2.50 L TSH Ur Specific [place] EBV Capsid Ag IgG Intrp EBV Nuc Ag IgG Interp 01/18/24 01/19/24 01/19/24 22:26 06:57 06:57 WBC RBC Hct Plt Count 83 L Eosinophils # 0.8 H Eosinophils # (Manual) ESR APTT D-Dimer VBG HCO3 Glucose 126 H POC Glucose (mg/dL) 121 H Total Bilirubin 1.9 H Alkaline Phosphatase 155 H Troponin I C-Reactive Protein Triglycerides VLDL Cholesterol, Calc HDL Cholesterol Vitamin B12 Folate TSH Ur Specific [place] EBV Capsid Ag IgG Intrp EBV Nuc Ag IgG Interp - Diagnostic Findings Additional studies: MRI of the brain report was noted, CT angiogram of the chest was noted Assessment and Plan Assessment: Impression: Acute URI, on initial presentation with elevated troponin level Elevated troponin felt to be related to myocarditis, status post cardiac catheterization possible cholesterol emboli From cardiac catheterization, and that is to be determined by exclusion clinically this is not typical to mention the patient had symptoms and elevated troponin prior to his cardiac catheterization Peripheral eosinophilia with hepatosplenomegaly and thrombocytopenia Bilateral cerebral emboli/ischemic stroke, both supra and infra tentorial. Mononeuropathy of left lower extremity, possible EGPA Slightly elevated sed rate with slightly elevated C-reactive protein, peripheral eosinophilia, mononeuropathy, history of asthma and on Singulair, cannot rule o ut EGPA. Recommendation: Continue supportive care measures Continue to monitor in the ICU Further inflammatory workup is pending I fully agree with plans to transfer the patient to [facility] for further workup. And for further treatment. In the meantime continue methylprednisolone high-dose as ordered by neurology on the case. Will continue to follow while in the ICU. Time with Patient: Greater than 30
--- NOTE | 2024-01-19 14:36 | P.CONS ---
History of Present Illness - Reason for Consult Consult date: 01/19/24 Eosinophilia - Chief Complaint Dyspnea, confusion - History of Present Illness Mr. Edward is a 28-year-old gentleman with a past medical history significant for asthma for whom hematology is consulted regarding eosinophilia. He was admitted on 01/16/2024 with noted chest discomfort and shortness of breath. He did report having URI symptoms prior to presentation. CTA of the chest on admission noted hepatomegaly and splenomegaly along with hilar and mediastinal lymphadenopathy. There was no evidence for pulmonary embolism at that time. He did have elevated troponin along with eosinophilic leukocytosis with WBC 13.2 (absolute eosinophil 3) and thrombocytopenia with platelets of 109. EKG revealed no evidence of ischemic changes. He did undergo cardiac catheterization on 01/18/2024 that revealed no evidence of coronary artery disease. Echocardiogram revealed left ventricular ejection fraction of 55 to 60% with mild concentric left ventricular hypertrophy and no wall motion abnormalities. During his hospitalization course, he did develop progressive confusion. Initial CT of the head without contrast revealed no acute findings, but brain MRI performed on 01/18/2024 noted acute diffuse ischemic changes within the bilateral centrum semiovale and periventricular white matter along with some acute changes in the cerebellum possibly consistent with showering emboli. CT angiography of the head and neck revealed no evidence of dissection, stenosis, or aneurysm. Given the radiographic and clinical findings, there was concern for vasculitis and has been started on high-dose steroids with methylprednisolone 1000 mg daily and was started on Plavix and aspirin daily per neurology. Currently, he is lying in bed undergoing EEG. He does have occasional twitching. His at bedside notes occasional forgetfulness still. He does endorse having had cough and occasional rhinosinusitis for couple months prior to admission. Review of Systems 14 point review of systems conducted with pertinent positives and negatives as noted per HPI Past Medical History Past Medical History: Asthma Additional Past Medical History / Comment(s): kidney stones. History of Any Multi-Drug Resistant Organisms: None Reported Past Surgical History: Back Surgery Additional Past Surgical History / Comment(s): ear tubes Past Anesthesia/Blood Transfusion Reactions: No Reported Reaction Past Psychological History: No Psychological Hx Reported Smoking Status: Current every day smoker Past Alcohol Use History: Occasional Past Drug Use History: None Reported - Past Family History Mother Family Medical History: Diabetes Mellitus Medications and Allergies Home Medications Medication Instructions Recorded Confirmed Type Albuterol Nebulized [Ventolin 2.5 mg INHALATION RT-TID PRN 01/16/24 01/16/24 History Nebulized] Albuterol Sulfate [Albuterol 2 puff INHALATION RT-Q6H PRN 01/16/24 01/16/24 History Sulfate Hfa] Fexofenadine HCl [Maura Allergy] 180 mg PO HS 01/16/24 01/16/24 History Fluticasone Nasal [place] [Flonase 1 spray EA NOSTRIL HS 01/16/24 01/16/24 History Nasal [place]] Montelukast [Singulair] 10 mg PO HS 01/16/24 01/16/24 History Omeprazole 20 mg PO HS 01/16/24 01/16/24 History Allergies Allergy/AdvReac Type Severity Reaction Status Date / Time No Known Allergies Allergy Verified 04/10/23 15:11 Physical Exam Vitals: Vital Signs Temp Pulse Pulse Resp BP BP Pulse Ox 01/19/24 11:00 70 17 112/67 92 L 01/19/24 10:30 78 20 111/70 01/19/24 10:00 80 12 113/68 92 L 01/19/24 09:30 75 19 119/71 92 L 01/19/24 09:00 77 12 119/66 95 01/19/24 08:30 98 20 106/78 95 01/19/24 08:00 97.9 F 75 20 106/78 92 L 01/19/24 07:30 20 94 L 01/19/24 07:00 80 12 94/63 95 01/19/24 06:30 77 23 116/65 92 L 01/19/24 06:00 67 15 152/76 95 01/19/24 05:30 72 18 134/79 93 L 01/19/24 05:00 75 18 114/67 96 01/19/24 04:30 86 33 H 117/79 96 01/19/24 04:00 99.2 F 70 14 115/81 01/19/24 03:30 77 18 122/86 94 L 01/19/24 03:00 73 28 H 128/87 95 01/19/24 02:30 77 22 120/68 96 01/19/24 02:00 78 21 129/79 96 01/19/24 01:30 81 20 109/69 96 01/19/24 01:00 84 19 110/69 94 L 01/19/24 00:30 74 19 114/73 94 L 01/19/24 00:00 98.6 F 75 12 121/82 95 01/18/24 23:30 82 9 L 120/80 96 01/18/24 23:00 81 14 126/83 95 01/18/24 22:30 78 19 127/79 96 01/18/24 19:53 98.5 F 80 16 130/79 98 01/18/24 16:00 98.3 F 80 15 130/83 98 01/18/24 14:52 71 20 126/78 99 01/18/24 13:27 97.9 F 20 118/62 98 01/18/24 12:25 97.8 F 91 18 117/80 98 FiO2 01/19/24 11:00 01/19/24 10:30 01/19/24 10:00 01/19/24 09:30 01/19/24 09:00 01/19/24 08:30 01/19/24 08:00 01/19/24 07:30 01/19/24 07:00 01/19/24 06:30 01/19/24 06:00 01/19/24 05:30 01/19/24 05:00 01/19/24 04:30 01/19/24 04:00 40 01/19/24 03:30 01/19/24 03:00 01/19/24 02:30 01/19/24 02:00 01/19/24 01:30 01/19/24 01:00 01/19/24 00:30 01/19/24 00:00 01/18/24 23:30 01/18/24 23:00 01/18/24 22:30 01/18/24 19:53 01/18/24 16:00 01/18/24 14:52 01/18/24 13:27 01/18/24 12:25 Intake and Output 01/18/24 01/19/24 01/19/24 22:59 06:59 14:59 Intake Total 0 118 Output Total 300 225 Balance 0 -300 -107 Intake: Oral 0 118 Output: Urine 300 225 Other: Voiding Method Urinal Urinal Urinal # Voids 2 1 Weight 98.6 kg - Constitutional General appearance: cooperative, no acute distress - EENT Eyes: EOMI - Respiratory Respiratory: bilateral: CTA - Cardiovascular Rhythm: regular - Gastrointestinal General gastrointestinal: no distended, hepatomegaly, normal bowel sounds, soft - Integumentary Erythematous rash noted across the face on the cheeks and nasal bridge Integumentary: rash - Psychiatric Psychiatric: appropriate affect, intact judgment & insight Results CBC & Chem 7: 01/19/24 06:57 01/19/24 06:57 Labs: Abnormal Lab Results - Last 24 Hours (Table) 01/18/24 01/18/24 01/18/24 Range/Units 06:45 06:45 14:30 Plt Count (150-450) k/uL Eosinophils # (0-0.7) k/uL ESR 39 H (0-15) mm/Hr VBG HCO3 (24-28) mmol/L Glucose (74-99) mg/dL POC Glucose (mg/dL) (70-110) mg/dL Total Bilirubin (0.2-1.3) mg/dL Alkaline Phosphatase (38-126) U/L Troponin I (0.000-0.034) ng/mL C-Reactive Protein 4.9 H (<1.0) mg/dL Vitamin B12 (200.0-944.0) pg/mL Folate (4.40-31.00) ng/mL TSH 7.030 H (0.465-4.680) mIU/L Ur Specific [place] (1.001-1.035) 01/18/24 01/18/24 01/18/24 Range/Units 14:30 14:30 16:00 Plt Count (150-450) k/uL Eosinophils # (0-0.7) k/uL ESR (0-15) mm/Hr VBG HCO3 29 H (24-28) mmol/L Glucose (74-99) mg/dL POC Glucose (mg/dL) (70-110) mg/dL Total Bilirubin (0.2-1.3) mg/dL Alkaline Phosphatase (38-126) U/L Troponin I 2.410 H* (0.000-0.034) ng/mL C-Reactive Protein (<1.0) mg/dL Vitamin B12 (200.0-944.0) pg/mL Folate (4.40-31.00) ng/mL TSH (0.465-4.680) mIU/L Ur Specific [place] 1.039 H (1.001-1.035) 01/18/24 01/18/24 01/18/24 Range/Units 16:06 16:06 18:14 Plt Count (150-450) k/uL Eosinophils # (0-0.7) k/uL ESR (0-15) mm/Hr VBG HCO3 (24-28) mmol/L Glucose (74-99) mg/dL POC Glucose (mg/dL) (70-110) mg/dL Total Bilirubin (0.2-1.3) mg/dL Alkaline Phosphatase (38-126) U/L Troponin I 2.650 H* (0.000-0.034) ng/mL C-Reactive Protein (<1.0) mg/dL Vitamin B12 >3600.0 H (200.0-944.0) pg/mL Folate 2.50 L (4.40-31.00) ng/mL TSH (0.465-4.680) mIU/L Ur Specific [place] (1.001-1.035) 01/18/24 01/19/24 01/19/24 Range/Units 22:26 06:57 06:57 Plt Count 83 L (150-450) k/uL Eosinophils # 0.8 H (0-0.7) k/uL ESR (0-15) mm/Hr VBG HCO3 (24-28) mmol/L Glucose 126 H (74-99) mg/dL POC Glucose (mg/dL) 121 H (70-110) mg/dL Total Bilirubin 1.9 H (0.2-1.3) mg/dL Alkaline Phosphatase 155 H (38-126) U/L Troponin I (0.000-0.034) ng/mL C-Reactive Protein (<1.0) mg/dL Vitamin B12 (200.0-944.0) pg/mL Folate (4.40-31.00) ng/mL TSH (0.465-4.680) mIU/L Ur Specific [place] (1.001-1.035) Assessment and Plan (1) Eosinophilic granulomatosis with polyangiitis (EGPA) Current Visit: Yes Status: Acute Code(s): M30.1 - POLYARTERITIS WITH LUNG INVOLVEMENT [CHURG-JEFF]; D72.18 - EOSINOPHILIA IN DISEASES CLASSIFIED ELSEWHERE SNOMED Code(s): 15538377 (2) Ischemic embolic stroke Current Visit: Yes Status: Acute Code(s): I63.9 - CEREBRAL INFARCTION, UNSPECIFIED SNOMED Code(s): 317212896 (3) Thrombocytopenia due to enhanced destruction, immune Current Visit: Yes Status: Acute Code(s): D69.59 - OTHER SECONDARY THROMBOCYTOPENIA SNOMED Code(s): 7418376 Plan: #Eosinophilia, likely due to eosinophilic granulomatosis with polyangiitis -Presented with dyspnea and chest discomfort with a past medical history significant of asthma with eosinophilic leukocytosis and mild thrombocytopenia in the setting of elevated troponin -Cardiac workup including cardiac catheterization, revealed no evidence of obstructive CAD -He did develop acute onset confusion on 01/17/2024 with a brain MRI concerning for acute ischemic changes and possible showering emboli -Given his clinical presentation, I do agree that it is concerning for vasculitis secondary to eosinophilic granulomatosis with polyangiitis -Agree with high-dose steroids and lab workup initiated by primary team -He is currently pending transfer to [facility] for further rheumatologic evaluation and possible cyclophosphamide #Bilateral ischemic stroke -Likely secondary to underlying vasculitis as patients with eosinophilic granulomatosis with polyangiitis are at increased risk for VTE complications -Workup for antiphospholipid syndrome as well as prothrombin and factor V Leiden mutations have been ordered -Continue aspirin/Plavix as recommended by neurology #Thrombocytopenia -Likely due to underlying rheumatologic process (Autoimmune destruction, splenic sequestration) that should improve with treatment -Continue to monitor Toby Alvarez MD
[2024-01-19 16:22] VITALS: TEMP 98.2
[2024-01-19 18:38] VITALS: RESP 19
[2024-01-19] MEDS: ACETAMINOPHEN TAB 325 MG TAB PO PRN (18:55)
[2024-01-19 19:31] VITALS: BP 127/75; PULSE 85
--- NOTE | 2024-01-20 01:13 | P.PN ---
Subjective Progress Note Date: 01/19/24 Patient was seen for a follow-up. Patient's was also present today. Patient is experiencing some muscle spasms. Patient intermittently has spasm with right hip flexion. Sometimes his body contorts to the side. He does not lose awareness, or has any obvious seizure-like activity. Denies headache. Patient otherwise appears comfortable. Objective - Vital Signs Vital signs: Vital Signs Temp 98.0 F 01/19/24 12:00 Pulse 77 01/19/24 12:00 Resp 11 L 01/19/24 12:00 BP 95/48 01/19/24 12:00 Pulse Ox 95 01/19/24 12:00 FiO2 40 01/19/24 04:00 Intake & Output 01/18/24 01/19/24 01/19/24 18:59 06:59 18:59 Intake Total 0 608 Output Total 300 225 Balance -300 383 Weight 98.6 kg Intake: Oral 0 608 Output: Urine 300 225 Other: Voiding Method Toilet Urinal Urinal # Voids 2 1 - Exam Patient is alert and awake, has somewhat flat affect. Speech and language functions are normal. Cranial nerves are normal. Visual mann are full. Face is symmetric. On muscle strength testing patient has mild right pronator drift. The strength is normal in the arms and legs. Sensory to touch is decreased in the right arm as compared to the left. Equal in the legs. Patient has mild ataxia for [id number] on the right. Gait deferred. - Labs CBC & Chem 7: 01/19/24 06:57 01/19/24 06:57 Labs: Abnormal Lab Results - Last 24 Hours (Table) 01/18/24 01/18/24 01/18/24 Range/Units 06:45 06:45 14:30 Plt Count (150-450) k/uL Eosinophils # (0-0.7) k/uL ESR 39 H (0-15) mm/Hr VBG HCO3 (24-28) mmol/L Glucose (74-99) mg/dL POC Glucose (mg/dL) (70-110) mg/dL Total Bilirubin (0.2-1.3) mg/dL Alkaline Phosphatase (38-126) U/L Troponin I (0.000-0.034) ng/mL C-Reactive Protein 4.9 H (<1.0) mg/dL Vitamin B12 (200.0-944.0) pg/mL Folate (4.40-31.00) ng/mL TSH 7.030 H (0.465-4.680) mIU/L Ur Specific [place] (1.001-1.035) 01/18/24 01/18/24 01/18/24 Range/Units 14:30 14:30 16:00 Plt Count (150-450) k/uL Eosinophils # (0-0.7) k/uL ESR (0-15) mm/Hr VBG HCO3 29 H (24-28) mmol/L Glucose (74-99) mg/dL POC Glucose (mg/dL) (70-110) mg/dL Total Bilirubin (0.2-1.3) mg/dL Alkaline Phosphatase (38-126) U/L Troponin I 2.410 H* (0.000-0.034) ng/mL C-Reactive Protein (<1.0) mg/dL Vitamin B12 (200.0-944.0) pg/mL Folate (4.40-31.00) ng/mL TSH (0.465-4.680) mIU/L Ur Specific [place] 1.039 H (1.001-1.035) 01/18/24 01/18/24 01/18/24 Range/Units 16:06 16:06 18:14 Plt Count (150-450) k/uL Eosinophils # (0-0.7) k/uL ESR (0-15) mm/Hr VBG HCO3 (24-28) mmol/L Glucose (74-99) mg/dL POC Glucose (mg/dL) (70-110) mg/dL Total Bilirubin (0.2-1.3) mg/dL Alkaline Phosphatase (38-126) U/L Troponin I 2.650 H* (0.000-0.034) ng/mL C-Reactive Protein (<1.0) mg/dL Vitamin B12 >3600.0 H (200.0-944.0) pg/mL Folate 2.50 L (4.40-31.00) ng/mL TSH (0.465-4.680) mIU/L Ur Specific [place] (1.001-1.035) 10/05/24 10/06/24 10/06/24 Range/Units 22:26 06:57 06:57 Plt Count 83 L (150-450) k/uL Eosinophils # 0.8 H (0-0.7) k/uL ESR (0-15) mm/Hr VBG HCO3 (24-28) mmol/L Glucose 126 H (74-99) mg/dL POC Glucose (mg/dL) 121 H (70-110) mg/dL Total Bilirubin 1.9 H (0.2-1.3) mg/dL Alkaline Phosphatase 155 H (38-126) U/L Troponin I (0.000-0.034) ng/mL C-Reactive Protein (<1.0) mg/dL Vitamin B12 (200.0-944.0) pg/mL Folate (4.40-31.00) ng/mL TSH (0.465-4.680) mIU/L Ur Specific [place] (1.001-1.035) Assessment and Plan Assessment: * Acute onset of amnesia. Rule out transient global amnesia. However patient has developed new onset numbness of the right arm. Rule out stroke/TIA. Patient's last known well was 12:30 PM. * Acute viral illness * Muscle spasms, rule out seizures versus athetoid movements. * Possible myocarditis with elevated cardiac enzymes, negative cath. 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 * Thrombocytopenia * Leukocytosis * Hypothyroidism * Eosinophilia * Asthma * Rule out vasculitis. * Previous history of EBV (IgG positive). Plan: * Patient's current NIH stroke scale is 3 (related to mild right pronator drift, right arm numbness and right arm ataxia). * MRI of the brain without contrast revealed acute diffuse ischemic changes within bilateral centrum semiovale and periventricular white matter. Some cerebellar acute ischemic changes are present. Findings suggest showering emboli. I personally reviewed MRI, and there is evidence of linear ischemic lesions in the watershed territory between the CHARLINE/MCA territories gary aterally. 1 lesion involving left thalamus and a few in the basal ganglia as well. * CTA of head and neck which revealed no evidence of dissection of the cervical internal carotid arteries or vertebral arteries or any evidence of significant stenosis at the carotid bifurcations. No evidence of intracranial high-grade stenosis or intracranial aneurysm. * EEG was performed today, which revealed background slowing, suggestive of mild encephalopathy. No focal, lateralized or epileptiform activity was seen. * Continue empirically Keppra 500 mg twice a day. * Recommend CAROL to rule out embolic source. * Hematology consultation appreciated. Patient undergoing vasculitis and hypercoagulable workup. 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 * Patient currently on high-dose steroids with Solu-Medrol 1 g IV PB daily. * Continue aspirin 81 mg and Plavix 75 mg. * Lipid panel with cholesterol 175, LDL 105, HDL 25, triglycerides 225. Continue Lipitor 40 mg daily. * Check hemoglobin A1c * B12 > 3600, folate 2.50. Start folic acid 1 mg daily. * IgE, compliments level, RPR negative. * LP was considered, but cannot be performed because of thrombocytopenia. * Recommended rheumatology consultation. * Possible transfer to [facility]. * Dr. Javi Putnam to resume neurology service from the morning.
--- NOTE | 2024-01-20 02:31 | EEG ---
ELECTROENCEPHALOGRAM REPORT PREAMBLE: This is a 28-year-old male who presented with chest pain. While in the hospital, he had an episode of memory loss, and stroke code was activated. CURRENT MEDICATIONS: 1. Aspirin. 2. Plavix. 3. Keppra. 4. Morphine. 5. Methylprednisone. EEG FINDINGS: This is a 21-channel digital EEG recorded with video component, utilizing 10/20 international system with referential and bipolar montages. Background consists of well-developed, moderately well regulated, mixed frequencies of 10-11 hertz alpha, mixed with some 7 hertz theta activity seen in bihemispheric region. Background is posterior dominant and seems to be reactive to eye opening and closing. Photic driving response was not clearly seen. Drowsiness was seen with appearance of bilaterally symmetric theta frequency rhythm. Deeper stages of sleep were not seen. case technician reported multiple instances of leg jerks, leg movement which were not associated with any electrographic abnormality. No focal or generalized epileptiform activity was seen. IMPRESSION: This is a borderline abnormal EEG due to minimal background slowing, suggestive of mild encephalopathy. No focal, lateralized, or epileptiform activity was seen. MMODL / IJN: [id number] /
--- NOTE | 2024-01-20 08:39 | P.DS ---
Providers Date of admission: 01/16/24 20:49 Expected date of discharge: 01/20/24 Attending physician: Bassam Hollins MD Consults: 01/16/24 20:47 Consult Physician Urgent Consulting Provider: Dandy Barfield Consult Reason/Comments: Chest pain, elevated troponin Do you want consulting provider notified?: Yes 01/18/24 12:56 Consult Physician Routine Consulting Provider: Hansa Hardin Consult Reason/Comments: new onset memory loss, elevated inflammatory markers d-dimer, elevated trop Do you want consulting provider notified?: Yes 01/18/24 13:07 Consult Physician Routine Consulting Provider: Toby Alvarez Consult Reason/Comments: thrombocytopenia, severe hepatomegally and spleenomegaly Do you want consulting provider notified?: Yes Primary care physician: Physician Nonstaff Hospital Course: Cerebral vasculitis, 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 He presented to the emergency department on 01/16/2024 with a chief complaint of chest pain and shortness of breath. Patient reports recent upper respiratory infection beginning 01/12/2024 and lasting for a few days prior to mostly resolving. He reports since resolution of this cold/infection he has been experiencing intermittent chest tightness and pain accompanied by shortness of breath worse with any exertion. Upon arrival to our facility patient underwent evaluation in the emergency department. Vital signs upon arrival show blood pressure 130/80, heart rate 100, respiratory rate 18, temp 98.6 F, and SpO2 of 90% on room air. EKG was completed showing normal sinus rhythm at 80 bpm with no noted T wave or ST abnormality showing no signs of acute ischemia upon personal review and interpretation. Chest x-ray negative for acute cardiopulm onary process. Labs completed and reviewed. CBC showing leukocytosis with WBC count of 13.2 and thrombocytopenia with platelet count of 109. BMP unremarkable. Blood glucose 101. Magnesium 2.0. Liver profile showing elevated total bili of 1.8 and alkaline phosphatase elevated at 157. Troponin was elevated at 2.110 and D-dimer also elevated at 4.19. CTA chest was completed negative for acute cardiopulmonary process but did reveal splenomegaly and hepatomegaly. Patient was started on low intensity heparin infusion for treatment of NSTEMI and admitted under our services with consultation to cardiology. Bilateral lower extremity Dopplers were completed negative for DVT. Troponins trended resulting at 2.110, 2.670, and 2.560. Patient was evaluated by cardiology and taken for stress test. Stress test revealing nonischemic EKG response to Lexiscan infusion and Mercedes scan reporting reversible decreased perfusion involving the cardiac apex, anterior wall, and lateral wall. Echocardiogram completed showing a preserved EF of 55 to 60% with no significant valvular or structural abnormalities reported. Patient underwent cardiac catheterization reporting normal coronary arteries with high sided left filling pressures. -Stress test revealing nonischemic EKG response to Lexiscan infusion and Mercedes scan reporting reversible decreased perfusion involving the cardiac apex, anterior wall, and lateral wall. -Echocardiogram completed showing a preserved EF of 55 to 60% with no significant valvular or structural abnormalities reported. -Cardiology following, took patient for cardiac cath which reported normal coronary arteries with high sided left filling pressures. -Lipid profile showing elevated triglycerides of 225 and VLDL of 45.00 with a low HDL of 25.00.. The day following left heart catheterization, patient was found to have confusion, code stroke was called and patient underwent CT of the head which was negative. He did undergo follow-up MRI and was found to have multiple supratentorial and infratentorial bilateral ischemic strokes concerning for vasculitis. Due to EGPA being high in the differential, patient was started on pulse dose steroids, [facility] was contacted regarding transfer for cerebral vasculitis and possible initiation of Cytoxan. Patient Condition at Discharge: Good Plan - Discharge Summary Discharge Rx Participant: Yes New Discharge Prescriptions: No Action Omeprazole 20 mg PO HS Fluticasone Nasal [place] [Flonase Nasal [place]] 1 spray EA NOSTRIL HS Albuterol Sulfate [Albuterol Sulfate Hfa] 2 puff INHALATION RT-Q6H PRN PRN Reason: Shortness Of Breath Fexofenadine HCl [Maura Allergy] 180 mg PO HS Albuterol Nebulized [Ventolin Nebulized] 2.5 mg INHALATION RT-TID PRN PRN Reason: Shortness Of Breath Montelukast [Singulair] 10 mg PO HS Discharge Medication List Albuterol Nebulized [Ventolin Nebulized] 2.5 mg INHALATION RT-TID PRN 01/16/24 [History] Albuterol Sulfate [Albuterol Sulfate Hfa] 2 puff INHALATION RT-Q6H PRN 01/16/24 [History] Fexofenadine HCl [Maura Allergy] 180 mg PO HS 01/16/24 [History] Fluticasone Nasal [place] [Flonase Nasal [place]] 1 spray EA NOSTRIL HS 01/16/24 [History] Montelukast [Singulair] 10 mg PO HS 01/16/24 [History] Omeprazole 20 mg PO HS 01/16/24 [History] Follow up Appointment(s)/Referral(s): Nonstaff,Physician [Primary Care Provider] - 1-2 days Discharge Disposition: OTHER INSTITUTION NOT DEFINED
[2024-01-20] MEDS ORDERED: FOLIC ACID 1 MG TAB PO SCH (09:00)
[2024-01-20 13:27] LABS: Prothrombin 20210A Mutation Negative
[2024-01-20 14:14] LABS: APTT 50 Sec(s) (<43); APTT 1:1 Mix 42 Sec(s) (<43); Dilute Russell Viper Venom 43 Sec(s) (<44)
[2024-01-20 14:50] LABS: C-ANCA <1:20 Titer (<1:20)
[2024-01-20 16:29] LABS: Cardiolipin Ab IgG Interp Negative (Negative); Cardiolipin Ab IgM Interp Negative (Negative); Cardiolipin IgA Antibody <2.0 U/mL; Cardiolipin IgM Antibody <1.5 U/mL
[2024-01-20 16:29] LABS: Cardiolipin Ab IgG Interp Negative (Negative)
[2024-01-20 17:06] LABS: Cardiolipin Ab IgM Interp Negative (Negative); Cardiolipin IgM Antibody <1.5 U/mL
[2024-01-21 04:52] LABS: Parvovirus B-19 IgG Antibodies 0.34 INDEX (<=0.90); Parvovirus B-19 IgM Antibodies 0.32 INDEX (<=0.90)
[2024-01-23 12:30] LABS: West Nile Virus IgM Antibody 0.01 INDEX (<0.90)
== END 2024-01-19 19:00 | disposition short-term general hospital (02) | DRG 542 ==
LOC: EC 17:58 → 3SCARD 20:48 → OBSVTOIN 20:49 → 3SCARD 23:06 → 2SICU 01-18 22:23
PROVIDERS: ADMIT Internal Medicine; ATTEND Internal Medicine
PROC: 4A023N7 Measurement of Cardiac Sampling and Pressure, Left Heart, Percutaneous Approach (ICD-10-PCS; principal; 2024-01-18)
PROC: B2111ZZ Fluoroscopy of Multiple Coronary Arteries using Low Osmolar Contrast (ICD-10-PCS; 2024-01-18)
DX: M30.1 Polyarteritis with lung involvement [Churg-Strauss] (principal); G93.41 Metabolic encephalopathy; I63.40 Cerebral infarction due to embolism of unspecified cerebral artery; I40.1 Isolated myocarditis; D69.6 Thrombocytopenia, unspecified; D72.18 Eosinophilia in diseases classified elsewhere; R16.2 Hepatomegaly with splenomegaly, not elsewhere classified; J44.89 Other specified chronic obstructive pulmonary disease; E03.9 Hypothyroidism, unspecified; R59.0 Localized enlarged lymph nodes; F17.210 Nicotine dependence, cigarettes, uncomplicated; R41.3 Other amnesia; M62.838 Other muscle spasm; L98.8 Other specified disorders of the skin and subcutaneous tissue; E78.1 Pure hyperglyceridemia; R74.8 Abnormal levels of other serum enzymes; R29.701 NIHSS score 1; R29.702 NIHSS score 2; R20.0 Anesthesia of skin; Z79.899 Other long term (current) drug therapy
CPT/HCPCS: 36415; 70450; 70496; 70498; 70551; 71046; 71275; 78452; 80053; 80061; 80306; 81003; 81240; 81241; 82140; 82607; 82746; 82785; 82803; 83735; 84439; 84443; 84484; 85025; 85027; 85379; 85610; 85613; 85652; 85730; 85732; 86038; 86140; 86146; 86147; 86160; 86162; 86255; 86618; 86644; 86645; 86663; 86664; 86665; 86747; 86780; 86788; 86789; 87205; 87449; 87529; 87636; 93005; 93017; 93306; 93458; 93970; 95816; 96361; 96365; 96366; 96375; 99285